=== PATIENT | female | born 1950 | race Caucasian/White ===

== ENCOUNTER → 2016-06-24 | Outpatient (CLI) | payer OTHER ==
[~2016-06-24] MED LIST: AMPH10TA2 PO; ASPI1TAB83 PO; ATOR-22 PO; Baclofen Pump; CYAN500T PO; CYCL0.052 OP; DIME1CAP2 PO; FOLI400T41 PO; GABA800T2 PO; LISI-787 PO; OMEP20TA PO; POLY335040 PO; PRAM1TAB6 PO; TRAZ1TAB8 PO; VIT D
[2016-06-24 17:52] LABS: BASO % 0.4 %; BASO ABS # 0.02 K/uL (0-0.2); COMPLETE YES; EOS % 8.9 %; HEMATOCRIT 39.1 % (37-47); IG% 0.2 %; LYMPH % 12.1 %; LYMPH ABS # 0.61 K/uL (1.2-3.4); MEAN CELL VOLUME 87.9 fL (80-100); MEAN CORPUSCULAR HEMOGLOBIN 29.4 pg (25-34); MEAN CORPUSCULAR HGB CONC 33.5 g/dl (32-36); MEAN PLATELET VOLUME 10.7 fL (7.4-10.4); MONO % 9.5 %; NEUT % 68.9 %; PLATELET COUNT 197 K/uL (130-400); RED BLOOD COUNT 4.45 M/uL (4.2-5.4); WHITE BLOOD COUNT 5.05 K/uL (4.8-10.8)
[2016-06-24 18:29] LABS: ALT/SGPT 38 U/L (12-78); AST/SGOT 26 U/L (15-37); BLOOD UREA NITROGEN 25 mg/dl (7-18); BUN/CREATININE RATIO 23.1 (10-20); CALCIUM 9.7 mg/dl (8.5-10.1); CARBON DIOXIDE 32 mmol/L (21-32); CHLORIDE 104 mmol/L (98-107); GLUCOSE 90 mg/dl (70-99); POTASSIUM 4.1 mmol/L (3.5-5.1); SODIUM 143 mmol/L (136-145)
[2016-06-24 18:31] LABS: ALB/GLOB RATIO 1.2 (0.9-2); ALKALINE PHOSPHATASE 85 U/L (45-117)
== END | disposition home or self-care (01) ==
LOC: C.LABMFLN 08:06
PROVIDERS: ATTEND Psychiatry & Neurology Neurology
DX: R53.83 Other fatigue (principal)

== ENCOUNTER → 2016-08-11 | Outpatient (CLI) | payer OTHER ==
[~2016-08-11] MED LIST changes: +FING1CAP PO; -TRAZ1TAB8 PO; +TRAZ1TAB9 PO
[2016-08-11 13:45] LABS: BLOOD UREA NITROGEN 25 mg/dl (7-18)
== END | disposition home or self-care (01) ==
LOC: C.LABMFLN 11:26
PROVIDERS: ATTEND Psychiatry & Neurology Neurology
DX: G35 Multiple sclerosis (principal)

== ENCOUNTER → 2016-08-14 | Outpatient (CLI) | payer OTHER ==
[~2016-08-14] MED LIST changes: +GADAVIST IV PRN
--- NOTE | 2016-08-14 14:40 | DIAGNOSTIC IMAGING REPORT ---
Brain MRI WITH AND WITHOUT CONTRAST HISTORY: Demyelinating disorder MS TECHNIQUE: Multiplanar multisequence MRI of the brain was performed both before and after the intravenous administration of contrast. COMPARISON STUDY: 08/24/2015 FINDINGS: Multiple foci of increased signal within the periventricular deep white matter regions. These are in general similar as compared to the prior study. The periventricular foci are essentially identical. There is a small new focus left superior parietal lobe transaxial image 16 showing a slight increase in signal on the diffusion-weighted images. Also a slight increase in diffusion-weighted signal characteristics of the optic radiations. This is indicative of the several mildly active plaques. There is no evidence, however for abnormal postcontrast enhancement. IMPRESSION: 1. Multiple foci of increased signal within the periventricular deep matter regions 2. Findings are slightly progressive in the regions of the left superior parietal subcortical region as well as the optic radiations. 3. These 2 locations demonstrate a slight increase in signal on diffusion-weighted images suggesting active demyelination. 4. There is no evidence, however for significant postcontrast enhancement. 5. Study is otherwise unchanged from the prior exam. Electronically signed by: Kt Bergman M.D. 08/14/2016 2:38 PM Dictated Date/Time: 08/14/2016 2:29 PM
== END | disposition home or self-care (01) ==
LOC: C.MRIBC 12:56
PROVIDERS: ATTEND Psychiatry & Neurology Neurology
DX: G35 Multiple sclerosis (principal)

== ENCOUNTER → 2017-01-05 | Outpatient (CLI) | payer OTHER ==
[~2017-01-05] MED LIST changes: -FING1CAP PO; -GADAVIST IV PRN; +TRAZ1TAB8 PO; -TRAZ1TAB9 PO
== END | disposition home or self-care (01) ==
LOC: C.CPL 15:38
PROVIDERS: ATTEND Psychiatry & Neurology Neurology
DX: G35 Multiple sclerosis (principal)

== ENCOUNTER → 2017-04-14 | Outpatient (CLI) | payer OTHER ==
[~2017-04-14] MED LIST changes: -DIME1CAP2 PO; +FING1CAP PO; -TRAZ1TAB8 PO; +TRAZ1TAB9 PO
[2017-04-14 18:05] LABS: BASO % 0.3 %; BASO ABS # 0.02 K/uL (0-0.2); COMPLETE YES; EOS % 24.1 %; HEMATOCRIT 39.4 % (37-47); IG% 0.1 %; LYMPH ABS # 0.36 K/uL (1.2-3.4); MEAN CELL VOLUME 91.2 fL (80-100); MEAN CORPUSCULAR HEMOGLOBIN 29.2 pg (25-34); MEAN PLATELET VOLUME 10.6 fL (7.4-10.4); MONO % 7.4 %; NEUT % 63.1 %; PLATELET COUNT 217 K/uL (130-400); RED BLOOD COUNT 4.32 M/uL (4.2-5.4); WHITE BLOOD COUNT 7.13 K/uL (4.8-10.8)
[2017-04-14 18:16] LABS: ALT/SGPT 41 U/L (12-78); AST/SGOT 25 U/L (15-37); BLOOD UREA NITROGEN 31 mg/dl (7-18); BUN/CREATININE RATIO 23.5 (10-20); CALCIUM 9.6 mg/dl (8.5-10.1); CARBON DIOXIDE 29 mmol/L (21-32); CHLORIDE 102 mmol/L (98-107); CREATININE 1.34 mg/dl (0.60-1.20); GLUCOSE 102 mg/dl (70-99); POTASSIUM 3.9 mmol/L (3.5-5.1); SODIUM 136 mmol/L (136-145)
[2017-04-14 18:19] LABS: ALKALINE PHOSPHATASE 145 U/L (45-117)
== END | disposition home or self-care (01) ==
LOC: C.LABMFLN 11:28
PROVIDERS: ATTEND Psychiatry & Neurology Neurology
DX: G35 Multiple sclerosis (principal)

== ENCOUNTER 2017-05-06 06:54 | Observation (INO) | payer OTHER ==
[~2017-05-06] VITALS: Ht 162.6 cm; Wt 91.0 kg
[~2017-05-06 06:54] MED LIST changes: +PRAM1TAB10 PO; -PRAM1TAB6 PO; +TRAZ-162 PO; -TRAZ1TAB9 PO
[2017-05-06] MEDS ORDERED: CHOL2000 PO (07:09)
[2017-05-06] MEDS ORDERED: HYDR-5688 PO (07:09)
[2017-05-06] MEDS ORDERED: POLY335019 PO (07:09)
[2017-05-06] MEDS ORDERED: ASPIRIN 81 MG CHEW PO STA (07:09)
[2017-05-06] MEDS ORDERED: CALCCAP7 PO (07:10)
[2017-05-06] MEDS ORDERED: NITROGLYCERIN 0.4 MG SL PER TAB CHARGE SL PRN ×2 (07:15→09:45)
--- NOTE | 2017-05-06 07:18 | EMERGENCY ROOM VISIT NOTE ---
History Report prepared by Aleksandra: Shelly Beckett Under the Supervision of: Dr. Murtaza Mares M.D. First contact with patient: 07:03 Chief Complaint: CHEST PAIN Stated Complaint: CHEST PAIN Nursing Triage Summary: pt reports having chest pain radiates down left arm. started last night thought was having indigestion. History of Present Illness The patient is a 66 year old female who presents to the Emergency Room with complaints of constant central chest pain beginning last night about nine hours ago. The patient states the pain radiates to her left arm. Presently, the patient rates her pain as a 4/10. When her pain began, the patient thought she was having indigestion. The patient took nitroglycerin this morning that took minimal relief. She denies any shortness of breath or abdominal pain. She denies sweating when her chest pain began but states she felt "funny" with its onset. She notes swelling in her legs which is baseline for her. The patient has a history of a catheterization and had a stent put in in [place] for a 50 % blockage. The patient has hypertension and takes lisinopril daily. She also takes a baby Aspirin daily. Source of History: patient Onset: 9 hours ago Position: chest Symptom Intensity: 4/10 Quality: other (radiates to arm) Timing: constant Associated Symptoms: + chest pain, No diaphoresis, No SOB, No abdominal pain Review of Systems All systems have been listed, reviewed, and are negative other than those previously mentioned. Please see Additional Medical History Sheet. Past Medical & Surgical Medical Problems: (1) CAD (coronary artery disease) (2) Depression (3) GERD (gastroesophageal reflux disease) (4) HTN (hypertension) (5) Lymphedema (6) MS (multiple sclerosis) Surgical Problems: (1) Hx of cholecystectomy (2) S/P insertion of intrathecal pump Family History Post dural puncture headache Social History Smoking Status: Never Smoker Marital Status: Occupation Status: disabled Current/Historical Medications Scheduled Amphetamine-Dextroamphetamine 10MG (Adderall 10MG), 1 TAB PO DAILY Aspirin (Aspirin), 81 MG PO DAILY Atorvastatin (Lipitor), 20 MG PO HS Calcium Carbonate-Vitamin D (Calcium Plus Vitamin D), 1 CAP PO DAILY Cholecalciferol (Vitamin D3), 2 CAP PO QAM Cyanocobalamin (Vitamin B-12), 1,000 MCG PO QAM Fingolimod Hcl ([employer]ya), 0.5 MG PO DAILY Folic Acid (Folvite), 200 MCG PO DAILY Gabapentin (Neurontin), 800 MG PO HS Lisinopril/Hctz (Zestoretic 20MG/12.5MG), 1 TAB PO DAILY Omeprazole (Omeprazole), 20 MG PO DAILY Pramipexole Dihydrochloride (Pramipexole Dihydrochlori), 1 MG PO BID Trazodone Hcl (Desyrel), 100 MG PO HS [Baclofen Pump], UD Scheduled PRN Polyethylene Glycol 3350 (Miralax), 17 GM PO DAILY PRN for Constipation Allergies Coded Allergies: Baclofen (Unverified Adverse Reaction, Severe, BACLOFEN TABS- EXTREME NAUSEA, 05/06/17) Clonazepam (Verified Adverse Reaction, Severe, unstable on feet, 05/06/17) Isosorbide Nitrate (Verified Adverse Reaction, Mild, NAUSEA, 05/06/17) Ropinirole (Verified Adverse Reaction, Mild, NAUSEA, 05/06/17) Aminopyridine (Verified Adverse Reaction, Unknown, other, 05/06/17) unknown Dalfampridine (Verified Adverse Reaction, Unknown, other, 05/06/17) unknown Physical Exam Vital Signs Date Time Temp Pulse Resp B/P (MAP) Pulse Ox O2 Delivery O2 Flow Rate FiO2 05/06/17 08:48 67 16 127/68 98 Room Air 05/06/17 08:15 57 16 133/70 98 Room Air 05/06/17 07:37 69 18 120/55 96 Room Air 05/06/17 07:08 76 05/06/17 07:08 71 16 173/84 98 Room Air 05/06/17 07:06 98 Room Air 05/06/17 06:56 36.5 77 18 169/89 99 Room Air Physical Exam GENERAL: Patient awake, alert, oriented x 3. Patient follows commands. Patient does not appear toxic. Patient is adequately hydrated and well- nourished. SKIN: No erythema, pallor, cyanosis or rash HEENT: Normal head, pupils equal, reactive to light and accommodation. LUNGS: Clear to auscultation. No wheezes, no rales, no rhonchi. HEART: No murmurs. No gallops. No rubs ABDOMEN: No masses, no rebound, no hepatomegaly or splenomegaly. EXTREMITIES: No signs of trauma. 2+ pedal and pretibial edema bilaterally, no pitting. No calf or thigh tenderness. NEUROLOGIC: Cranial nerves II-XII within normal limits. No gross motor sensory function deficits. Medical Decision & Procedures ER Provider Diagnostic Interpretation: Radiology results as stated below per my review and radiologist interpretation: CHEST ONE VIEW PORTABLE FINDINGS: Atherosclerosis of aortic arch. Cardiac silhouette mildly enlarged. Lungs and pleural spaces clear. Osseous structures normal. Cholecystectomy clips noted. IMPRESSION: 1. No acute cardiopulmonary disease. Electronically signed by: Nikolas Alba M.D. Laboratory Results 05/06/17 07:15 05/06/17 07:15 Test 05/06/17 07:15 05/06/17 08:48 Red Blood Count 4.17 M/uL (4.2-5.4) Mean Corpuscular Volume 91.6 fL (80-100) Mean Corpuscular Hemoglobin 29.7 pg (25-34) Mean Corpuscular Hemoglobin Concent 32.5 g/dl (32-36) RDW Standard Deviation 44.0 fL (36.4-46.3) RDW Coefficient of Variation 13.2 % (11.5-14.5) Mean Platelet Volume 10.2 fL (7.4-10.4) Anion Gap 3.0 mmol/L (3-11) Est Creatinine Clear Calc Drug Dose 55.2 ml/min Estimated GFR () 60.4 Estimated GFR (Non- 52.1 BUN/Creatinine Ratio 23.0 (10-20) Calcium Level 9.1 mg/dl (8.5-10.1) Bedside Troponin I < 0.030 ng/ml (0-0.045) Laboratory results as stated above per my review. Medications Administered Medications (Trade) Dose Ordered Sig/Dori Route Start Time Stop Time Status Last Admin Dose Admin Nitroglycerin (Nitrostat Tab) 0.4 mg Q5M PRN SL 05/06/17 07:15 05/06/17 10:26 DC 05/06/17 07:27 0.4 MG Aspirin (Aspirin Chew) 162 mg NOW STAT PO 05/06/17 07:09 05/06/17 07:11 DC 05/06/17 07:27 162 MG ECG Indication: chest pain Rate (beats per minute): 73 Rhythm: normal sinus Findings: no acute ischemic change, no ectopy ED Course 0703: Past medical records reviewed. The patient was evaluated in room A2. A complete history and physical examination was performed. 0709: Ordered Aspirin 162 mg PO. 0715: Ordered Nitroglycerin 0.4 mg SL. 0848: The patient is still having pain. I discussed options and advised further evaluation in hospital over night given her history. The patient is agreeable to treatment plan. 0854: Discussed the patient's case with Amada KEYS. The patient will be evaluated for further management. Medical Decision Differential diagnosis: Etiologies such as cardiac ischemia, aortic dissection, pulmonary embolism, pneumonia, pneumothorax, musculoskeletal, infections, pericarditis, myocarditis , esophageal rupture, gastrointestinal, as well as others were entertained. Patient is here with chest pain concerning for cardiac disease. Multiple labs, EKG and imaging were obtained. Please see above. The patient does not have elevation of her troponin. The patient is diabetic and has a history of MS. She is not a candidate for stress testing at this time. Because of this her significant history sheet will require further evaluation in the hospital with repeat cardiac markers and EKG. I discussed care with the hospitalist. I also discussed care with the patient and her . Medication Reconcilliation Current Medication List: was personally reviewed by me Blood Pressure Screening Patient's blood pressure: Normal blood pressure Consults Time Called: 08 Consulting Physician: Amada KEYS Returned Call: [phone] Discussed the patient's case with Amada KEYS. The patient will be evaluated for further management. Impression Primary Impression: Precordial chest pain Scribe Attestation The scribe's documentation has been prepared under my direction and personally reviewed by me in its entirety. I confirm that the note above accurately reflects all work, treatment, procedures, and medical decision making performed by me. Departure Information Dispostion Being Evaluated By Hospitalist Referrals Tory Bowens D.O. (PCP) Patient Instructions My [facility]
--- NOTE | 2017-05-06 07:25 | DIAGNOSTIC IMAGING REPORT ---
CHEST ONE VIEW PORTABLE CLINICAL HISTORY: 66 years-old Female presenting with chest pain. TECHNIQUE: Portable upright AP view of the chest was obtained. COMPARISON: 11/15/2012. FINDINGS: Atherosclerosis of aortic arch. Cardiac silhouette mildly enlarged. Lungs and pleural spaces clear. Osseous structures normal. Cholecystectomy clips noted. IMPRESSION: 1. No acute cardiopulmonary disease. Electronically signed by: Nikolas Alba M.D. 05/06/2017 7:24 AM Dictated Date/Time: 05/06/2017 7:22 AM
[2017-05-06 07:27] LABS: HEMATOCRIT 38.2 % (37-47); HEMOGLOBIN 12.4 g/dL (12.0-16.0); MEAN CELL VOLUME 91.6 fL (80-100); MEAN CORPUSCULAR HEMOGLOBIN 29.7 pg (25-34); MEAN CORPUSCULAR HGB CONC 32.5 g/dl (32-36); MEAN PLATELET VOLUME 10.2 fL (7.4-10.4); PLATELET COUNT 186 K/uL (130-400); RED CELL DISTRIBUTION WIDTH CV 13.2 % (11.5-14.5); WHITE BLOOD COUNT 6.43 K/uL (4.8-10.8)
[2017-05-06 07:44] LABS: CALCIUM 9.1 mg/dl (8.5-10.1); CREATININE 1.11 mg/dl (0.60-1.20); POTASSIUM 3.8 mmol/L (3.5-5.1)
[2017-05-06] MEDS ORDERED: CYAN10005 PO (07:47)
[2017-05-06] MEDS ORDERED: ACETAMINOPHEN 325 MG TAB PO PRN (09:45)
[2017-05-06] MEDS ORDERED: ONDANSETRON INJ 2 MG/ML 2 ML VIAL IV PRN (09:45)
[2017-05-06] MEDS ORDERED: POLYETHYLENE (MIRALAX) 17 GM PACK PO PRN ×2 (10:00)
--- NOTE | 2017-05-06 10:15 | NUR ---
A: PT ARRIVED TO ROOM 287-2 AT THIS TIME. PT ORIENTED TO ROOM AND CALL BOSS SYSTEM. PT IS A&OX4. VSS ON RA. DENIES CHEST PAIN AND SOB AT THIS TIME. PT IS OOB WITH SUPERVISION AND A ROLLING WALKER. NPO EXCEPT MEDS FOR POSSIBLE STRESS TEST. PT IS RESTING IN BED AT THIS TIME. FAMILY AT BEDSIDE. NO COMPLAINTS. Q1H ROUNDING. CALL BOSS WITHIN REACH. WILL CONTINUE TO MONITOR.
[2017-05-06] MEDS ORDERED: IV FLUIDS COMPLETED PRN (10:30)
[2017-05-06] MEDS ORDERED: AMPH10TA2 PO (11:14)
[2017-05-06 11:29] LABS: INR 0.9 (0.9-1.1); PTT PATIENT 24.7 SECONDS (21.0-31.0)
[2017-05-06] MEDS ORDERED: OPTIRAY 320 IV PRN (11:30)
[2017-05-06 11:46] VITALS: BP 132/78; PULSE 58; TEMP 36.5; O2SAT 97
[2017-05-06] MEDS ORDERED: ENOXAPARIN 40 MG/0.4 ML SYR SC SCH (12:00)
--- NOTE | 2017-05-06 12:00 | NUR ---
A: ASSESSMENT UNCHANGED. Q1H ROUNDING. CALL BOSS WITHIN REACH. WILL CONTINUE TO MONITOR.
[2017-05-06 12:01] VITALS: BP 152/87; PULSE 69; TEMP 36.5; O2SAT 95; Ht 162.6 cm; Wt 91.0 kg
--- NOTE | 2017-05-06 13:05 | DIAGNOSTIC IMAGING REPORT ---
CHEST CTA for PULMONARY ARTERIES CT DOSE: 442.51 mGy.cm HISTORY: Atypical chest pain. TECHNIQUE: Multiaxial CT images of the chest were performed following the intravenous administration of contrast to evaluate the pulmonary arteries. Maximal intensity projection images were also obtained. A dose lowering technique was utilized adhering to the principles of ALARA. COMPARISON STUDY: Chest 05/06/2017. FINDINGS: Normal caliber thoracic aorta with no evidence for dissection. The heart is normal in size. No pleural or pericardial effusions. No filling defects within the pulmonary arteries to suggest pulmonary embolus. Cholecystectomy. There is an intrathecal catheter which terminates at the T9 level. No mediastinal or hilar lymphadenopathy. The central airways are patent. No mediastinal or hilar lymphadenopathy. Calcified granuloma within the right upper lobe. A few calcified right hilar lymph nodes. No focal lung consolidations to suggest pneumonia. A few linear densities at the lung bases consistent with subsegmental atelectasis. IMPRESSION: No evidence for pulmonary embolus. Electronically signed by: Romeo Espitia M.D. 05/06/2017 1:04 PM Dictated Date/Time: 05/06/2017 12:38 PM
--- NOTE | 2017-05-06 13:26 | History and Physical ---
History & Physical Date & Time of Service: May 06, 2017 ~ 9:15 Chief Complaint: Chest Pain Primary Care Physician: Tory Bowens D.O. History of Present Illness 66 year old female who presents to the ED with chest pain. Patient reports she was sitting on the couch last night when she developed left sided chest tightness. Pain radiated into her left arm. She initially thought discomfort was due to indigestion. She took some over the counter stomach soothers. She had some improvement in the discomfort however it returned. Patient was able to sleep throughout the night however when she woke up this morning the discomfort was still present. No further radiation of the pain into the left arm however she reports some pain in the left scapula. She had mild associated lightheadedness. No specific causative or alleviating factors. She denies dizziness and syncopal events. No shortness of breath, nausea, or diaphoresis. She has chronic lower extremity edema which is unchanged from baseline. Reports she has been feeling well recently. She has chronic constipation from MS which is unchanged. No abdominal pain, vomiting, or diarrhea. She denies fever and chills. She has chronic urinary incontinence from MS which is unchanged as well. No other urinary symptoms. In the ED, patient's initial troponin is negative and EKG does not show any acute ST changes. She was given SL nitro without much change in her discomfort. She is hemodynamically stable. Past Medical/Surgical History Medical Problems: (1) CAD (coronary artery disease) Permanent Comment: 2001 - BMS to LAD 2009 - cath, moderate CAD Status: Chronic (2) Depression Status: Chronic (3) GERD (gastroesophageal reflux disease) Status: Chronic (4) HTN (hypertension) Status: Chronic (5) Lymphedema Status: Chronic (6) MS (multiple sclerosis) Status: Chronic Surgical Problems: (1) Hx of cholecystectomy Status: Chronic (2) S/P insertion of intrathecal pump Status: Chronic Family History FH: CAD (coronary artery disease) Hypertension BROTHER (stents, CABG) Social History Smoking Status: Never Smoker Alcohol Use: none Marital Status: Occupational Status: disabled Immunizations History of Influenza Vaccine: Yes Influenza Vaccine Date: Apr 09, 2017 History of Tetanus Vaccine?: Yes Tetanus Immunization Date: Dec 03, 2005 History of Pneumococcal: Yes Pneumococcal Date: Apr 09, 2017 Allergies Coded Allergies: Baclofen (Unverified Adverse Reaction, Severe, BACLOFEN TABS- EXTREME NAUSEA, 05/06/17) Clonazepam (Verified Adverse Reaction, Severe, unstable on feet, 05/06/17) Isosorbide Nitrate (Verified Adverse Reaction, Mild, NAUSEA, 05/06/17) Ropinirole (Verified Adverse Reaction, Mild, NAUSEA, 05/06/17) Aminopyridine (Verified Adverse Reaction, Unknown, other, 05/06/17) unknown Dalfampridine (Verified Adverse Reaction, Unknown, other, 05/06/17) unknown Home Medications Scheduled Amphetamine-Dextroamphetamine 10MG (Adderall 10MG), 1 TAB PO DAILY Aspirin (Aspirin), 81 MG PO DAILY Atorvastatin (Lipitor), 20 MG PO HS Calcium Carbonate-Vitamin D (Calcium Plus Vitamin D), 1 CAP PO DAILY Cholecalciferol (Vitamin D3), 2 CAP PO QAM Cyanocobalamin (Vitamin B-12), 1,000 MCG PO QAM Fingolimod Hcl (Gilenya), 0.5 MG PO DAILY Folic Acid (Folvite), 200 MCG PO DAILY Gabapentin (Neurontin), 800 MG PO HS Lisinopril/Hctz (Zestoretic 20MG/12.5MG), 1 TAB PO DAILY Omeprazole (Omeprazole), 20 MG PO DAILY Pramipexole Dihydrochloride (Pramipexole Dihydrochlori), 1 MG PO BID Trazodone Hcl (Desyrel), 100 MG PO HS [Baclofen Pump], UD Scheduled PRN Polyethylene Glycol 3350 (Miralax), 17 GM PO DAILY PRN for Constipation Review of Systems ROS per HPI, all other systems reviewed and negative Physical Exam Vital Signs Date Time Temp Pulse Resp B/P (MAP) Pulse Ox O2 Delivery O2 Flow Rate FiO2 05/06/17 09:59 68 16 136/72 99 Room Air 05/06/17 09:47 63 05/06/17 08:48 67 16 127/68 98 Room Air 05/06/17 08:15 57 16 133/70 98 Room Air 05/06/17 07:37 69 18 120/55 96 Room Air 05/06/17 07:08 76 05/06/17 07:08 71 16 173/84 98 Room Air 05/06/17 07:06 98 Room Air 05/06/17 06:56 36.5 77 18 169/89 99 Room Air General Appearance: WD/WN, no apparent distress Head: normocephalic, atraumatic Eyes: normal inspection, EOMI, sclerae normal ENT: hearing grossly normal, + pertinent finding (mucous membranes moist) Neck: supple, no JVD, trachea midline Respiratory/Chest: chest non-tender, lungs clear, normal breath sounds, no respiratory distress Cardiovascular: regular rate, rhythm, normal peripheral pulses, + pertinent finding (+2 edema BLLE) Abdomen/GI: normal bowel sounds, non tender, soft, no organomegaly Extremities/Musculoskelatal: normal inspection, no calf tenderness Neurologic/Psych: no motor/sensory deficits, alert, normal mood/affect, oriented x 3 Skin: normal color, warm/dry Diagnostics Laboratory Results Results Past 24 Hours Test 05/06/17 07:15 05/06/17 08:48 05/06/17 10:05 05/06/17 10:29 Range/Units White Blood Count 6.43 4.8-10.8 K/uL Red Blood Count 4.17 4.2-5.4 M/uL Hemoglobin 12.4 12.0-16.0 g/dL Hematocrit 38.2 37-47 % Mean Corpuscular Volume 91.6 80-100 fL Mean Corpuscular Hemoglobin 29.7 25-34 pg Mean Corpuscular Hemoglobin Concent 32.5 32-36 g/dl RDW Standard Deviation 44.0 36.4-46.3 fL RDW Coefficient of Variation 13.2 11.5-14.5 % Platelet Count 186 130-400 K/uL Mean Platelet Volume 10.2 7.4-10.4 fL Sodium Level 139 136-145 mmol/L Potassium Level 3.8 3.5-5.1 mmol/L Chloride Level 105 98-107 mmol/L Carbon Dioxide Level 31 21-32 mmol/L Anion Gap 3.0 3-11 mmol/L Blood Urea Nitrogen 26 7-18 mg/dl Creatinine 1.11 0.60-1.20 mg/dl Est Creatinine Clear Calc Drug Dose 55.2 ml/min Estimated GFR () 60.4 Estimated GFR (Non- 52.1 BUN/Creatinine Ratio 23.0 10-20 Random Glucose 117 70-99 mg/dl Calcium Level 9.1 8.5-10.1 mg/dl Bedside Troponin I < 0.030 < 0.030 0-0.045 ng/ml Diagnostic Radiology CXR IMPRESSION: 1. No acute cardiopulmonary disease. Impression Assessment and Plan CHEST PAIN, HX CAD - admit to tele - patient presenting with waxing and waning chest pain that started last evening ; no change with SL nitro in ED - initial troponin negative, EKG without acute ST changes - CTA negative for PE - consider GI etiology since patient had some relief with OTC stomach soothers - followed with Dr. Ernst with [facility] cardiology - now requesting to get established with [facility] - continue ASA and statin; not on beta radha therapy due to bradycardia in the past; noted that Gilenya also can cause bradycardia - case discussed with Dr. Mccall - will get dobutamine stress this afternoon ; if negative, likely can d/c home this evening HTN - BP controlled, continue lisinopril/HCTZ MS - continue Adderall, Gilenya, and Neurontin DVT PROPHYLAXIS - SQ Lovenox DISPO - The patient will be placed as observation status for now until further work up is complete. Attending addendum: Patient was seen and examined independently. Agree with the above H&P; please refer to above for details Patient presented to the ER with complaints of CP that began last night and has been intermittently recurring since then. Per the patient it seemed like indigestion but did not improve. No associated diaphoresis, N/V or radiation of pain. Cardiac: RR, S1 and S2 auscultated Respiratory: CTA B/L GI: soft NT, ND, + BS ATYPICAL CHEST PAIN: -serial CM -stress TTE as per discussion with Cardiology -initial CM and EKG are negative -CT Thorax to rule out PE VTE Prophylaxis VTE Risk Assessment Done? Y/N: Yes Risk Level: Moderate
[2017-05-06] MEDS ORDERED: FINGOLIMOD HCL 0.5 MG CAP PO SCH (13:30)
[2017-05-06] MEDS ORDERED: DOBUTamine HCL 12.5 MG/ML 20 ML VIAL ONE (14:31)
[2017-05-06] MEDS ORDERED: METOPROLOL TARTRATE 1 MG/ML VIAL ONE (14:31)
[2017-05-06] MEDS ORDERED: ATROPINE SULFATE 0.1 MG/ML 5ML SYR ONE (14:31)
[2017-05-06] MEDS ORDERED: PERFLUTREN LIPID MICROSPHERE (DEFINITY) IV ONE (15:06)
--- NOTE | 2017-05-06 15:08 | NUR ---
CPL: DOBUTAMINE STRESS ECHO COMPLETED WITH DR PRESLEY AT BEDSIDE, THR REACHED AND PATIENT TOLERATED WELL, DOBUTAMINE TITRATED STARTING AT 5 MCG/KG/MIN AND MAX REACHED OF 50 MCG/KG/MIN, LOPRESSOR 5 MG IV GIVEN AT 1452 FOR HR OF 136
[2017-05-06 16:00] VITALS: O2SAT 95
--- NOTE | 2017-05-06 16:01 | NUR ---
OBS: Patient returned to floor from stress test. Sinus ludmila on the monitor. Patient is alert and oriented, denies any c/o chest pain at this time. Dr. Cruz in to see patient; diet ordered. Patient for discharge this evening. Will continue to monitor.
--- NOTE | 2017-05-06 16:15 | Discharge Instructions ---
Discharge Instructions Date of Service May 06, 2017. Admission Reason for Admission: Chest Pain Discharge Discharge Diagnosis / Problem: Chest pain Discharge Goals Goal(s): Therapeutic intervention Activity Recommendations Activity Limitations: resume your previous activity . Instructions / Follow-Up Instructions / Follow-Up Please follow up with Primary Care: Asha Yu PA-c on ThursdayMay 13 at 11:25AM (same practice as your previous PCP Dr. Bowens) Current Hospital Diet Patient's current hospital diet: AHA Diet (Heart Healthy) Discharge Diet Recommended Diet: AHA Diet (Heart Healthy) Pending Studies Studies pending at discharge: no Medical Emergencies . Who to Call and When: Medical Emergencies: If at any time you feel your situation is an emergency, please call 911 immediately. . Non-Emergent Contact Non-Emergency issues call your: Primary Care Provider . . "Provider Documentation" section prepared by Sierra Cruz. . VTE Core Measure Inpt VTE Proph given/why not?: Enoxaparin (Lovenox)SQ
--- NOTE | 2017-05-06 16:16 | Discharge Summary ---
Discharge Summary Date of Service May 06, 2017. Discharge Summary Admission Date: May 06, 2017 at 09:40 Discharge Date: May 06, 2017 Discharge Disposition: Home Principal Diagnosis: Chest pain Medication Reconciliation Continued Medications: Amphetamine-Dextroamphetamine 10MG (Adderall 10MG) 1 Tab Tab 1 TAB PO DAILY for 30 Days, #30 TAB Aspirin (Aspirin) 81 Mg Tab 81 MG PO DAILY Atorvastatin (Lipitor) 20 Mg Tab 20 MG PO HS, TAB Calcium Carbonate-Vitamin D (Calcium Plus Vitamin D) 1 Cap Cap 1 CAP PO DAILY Cholecalciferol (Vitamin D3) 2,000 Unit Cap 2 CAP PO QAM, CAP Cyanocobalamin (Vitamin B-12) 1,000 Mcg Tab 1000 MCG PO QAM, TAB Fingolimod Hcl (Gilenya) 0.5 Mg Cap 0.5 MG PO DAILY Folic Acid (Folvite) 400 Mcg Tab 200 MCG PO DAILY, TAB Gabapentin (Neurontin) 800 Mg Tab 800 MG PO HS, TAB Lisinopril/Hctz (Zestoretic 20MG/12.5MG) Tab 1 TAB PO DAILY, TAB Omeprazole (Omeprazole) 20 Mg Tab 20 MG PO DAILY Polyethylene Glycol 3350 (Miralax) 1 Pow Pow 17 GM PO DAILY PRN for Constipation Pramipexole Dihydrochloride (Pramipexole Dihydrochlori) 1 Mg Tab 1 MG PO BID Trazodone Hcl (Desyrel) 100 Mg Tab 100 MG PO HS, TAB [Baclofen Pump] () UD Admission Information HPI (per Admitting provider): 66 year old female who presents to the ED with chest pain. Patient reports she was sitting on the couch last night when she developed left sided chest tightness. Pain radiated into her left arm. She initially thought discomfort was due to indigestion. She took some over the counter stomach soothers. She had some improvement in the discomfort however it returned. Patient was able to sleep throughout the night however when she woke up this morning the discomfort was still present. No further radiation of the pain into the left arm however she reports some pain in the left scapula. She had mild associated lightheadedness. No specific causative or alleviating factors. She denies dizziness and syncopal events. No shortness of breath, nausea, or diaphoresis. She has chronic lower extremity edema which is unchanged from baseline. Reports she has been feeling well recently. She has chronic constipation from MS which is unchanged. No abdominal pain, vomiting, or diarrhea. She denies fever and chills. She has chronic urinary incontinence from MS which is unchanged as well. No other urinary symptoms. In the ED, patient's initial troponin is negative and EKG does not show any acute ST changes. She was given SL nitro without much change in her discomfort. She is hemodynamically stable. Physical Exam (per Admitting): General Appearance: WD/WN, no apparent distress Head: normocephalic, atraumatic Eyes: normal inspection, EOMI, sclerae normal ENT: hearing grossly normal, + pertinent finding (mucous membranes moist) Neck: supple, no JVD, trachea midline Respiratory/Chest: chest non-tender, lungs clear, normal breath sounds, no respiratory distress Cardiovascular: regular rate, rhythm, normal peripheral pulses, + pertinent finding (+2 edema BLLE) Abdomen/GI: normal bowel sounds, non tender, soft, no organomegaly Extremities/Musculoskelatal: normal inspection, no calf tenderness Neurologic/Psych: no motor/sensory deficits, alert, normal mood/affect, oriented x 3 Skin: normal color, warm/dry Hospital Course Admitted for chest pain rule out ACS; had a stress TTE which was negative: * -- Conclusions -- * Dobutamine Stress Echo: * 1. Negative Dobutamine stress echo for ischemia at 88 % MPHR. * 2. Negative Dobutamine ECG for ischemia at 88 % MPHR. * 3. Appropriate blood pressure response. * 4. No arrhythmia. * 5. No chest pain reported. * 6. Technically difficult study, enhanced with IV Definity. * Echo: * 1. Normal left ventricular size and systolic function. EF 60-65%. No regional wall motion abnormalities. No left ventricular hypertrophy. No significant diastolic dysfunction. * 2. Mild left atrial dilation. * 3. No significant valvular abnormalities. * 4. Normal estimated right ventricular systolic pressure. CHEST PAIN, HX CAD - an events on tele - patient presenting with waxing and waning chest pain that started last evening ; no change with SL nitro in ED - EKG without acute ST changes - CM negative - CTA negative for PE - consider GI etiology since patient had some relief with OTC stomach soothers - followed with Dr. Ernst with [facility] cardiology - now requesting to get established [place] [facility] - continue ASA and statin; not on beta radha therapy due to bradycardia in the past; noted that Gilenya also can cause bradycardia - case discussed with Dr. Mccall - will get dobutamine stress this afternoon ; if negative, likely can d/c home this evening HTN - BP controlled, continue lisinopril/HCTZ MS - continue Adderall, Gilenya, and Neurontin Total time spent on discharge = 35 This includes examination of the patient, discharge planning, medication reconciliation, and communication with other providers. Discharge Instructions see patient instructions
[2017-05-06 16:45] VITALS: BP 152/87; PULSE 69; TEMP 36.5; O2SAT 95
--- NOTE | 2017-05-06 16:51 | DOBUTAMINE ECHO ---
*NOTICE TO RECEIVING DEMOCRAT AGENCY This information is strictly Confidential and protected under [place] law. [place] law prohibits you from making any further disclosure of this information unless further disclosure is expressly permitted by the written consent of the person to whom it pertains or is authorized by law. A general authorization for the release of medical or other information is not sufficient for this purpose. Hospital accepts no responsibility if the information is made available to any other person, INCLUDING THE PATIENT. Interpretation Summary * Name: SANJEEV COLBERT Study Date: 05/06/2017 01:14 PM BP: 116/54 mmHg * Patient Location: .[facility]\S\N287\S\2 HR: 71 * : 1950 (M/d/yyyy) Gender: Female Height: 64 in * Age: 66 yrs Ethnicity: [place] Weight: 200 lb * Ordering Physician: Amada Monzon * Referring Physician: Self, Referred * Performed By: Reny Ruffin RDCS * * Reason For Study: Chest pain * BSA: 2.0 m2 * -- Conclusions -- * Dobutamine Stress Echo: * 1. Negative Dobutamine stress echo for ischemia at 88 % MPHR. * 2. Negative Dobutamine ECG for ischemia at 88 % MPHR. * 3. Appropriate blood pressure response. * 4. No arrhythmia. * 5. No chest pain reported. * 6. Technically difficult study, enhanced with IV Definity. * Echo: * 1. Normal left ventricular size and systolic function. EF 60-65%. No regional wall motion abnormalities. No left ventricular hypertrophy. No significant diastolic dysfunction. * 2. Mild left atrial dilation. * 3. No significant valvular abnormalities. * 4. Normal estimated right ventricular systolic pressure. Procedure Details * DOBUTAMINE ECHO, CPT#[id number] * ECHO DOPPLER, CPT #[id number] * ECHO COLOR FLOW, CPT #[id number] * A contrast injection of Definity was performed to improve assessment of LV function. * Contrast was injected into an intravenous site in the left arm. * One vial of Definity ultrasound contrast was diluted in normal saline to a total volume of 10 ml. A total of '5' ml of solution was administered during imaging. * Lot # [id number] of Definity utilized for procedure. * Expiration date JUN 29. * The attending nurse who injected the contrast agent was Christine Durbin RN. Left Ventricle * The left ventricle is normal in size. * There is normal left ventricular wall thickness. * Ejection Fraction = 60-65%. * Left ventricular systolic function is normal. * Resting wall motion: Normal. Stress wall motion: Appropriate increase in Left ventricular systolic function and decrease in cavity size. No stress induced segmental wall motion abnormalities. * The left ventricular ejection fraction increases normally with stress. The left ventricular end-systolic cavity size reduces post-stress (normal response). The left ventricular wall motion with stress is normal. Right Ventricle * Borderline right ventricular enlargement. * The right ventricular systolic function is normal. * The right ventricular systolic function is normal as assessed by tricuspid annular plane systolic excursion (TAPSE) (normal >1.5 cm). Atria * The left atrium is mildly dilated. * Right atrial size is normal. * There is no evidence of atrial septal defect, but resolution does not allow assessment for a patent foramen ovale. Mitral Valve * There is mild mitral annular calcification. * There is no mitral valve stenosis. * There is trace mitral regurgitation. Tricuspid Valve * The tricuspid valve is not well visualized, but is grossly normal. * There is no tricuspid stenosis. * There is trace tricuspid regurgitation. Aortic Valve * The aortic valve is trileaflet. * No hemodynamically significant valvular aortic stenosis. * No aortic regurgitation is present. Pulmonic Valve * The pulmonary valve is inadequately visualized, but the Doppler data is adequate for interpretation. * Trace pulmonic valvular regurgitation. Great Vessels * The aortic root is normal size. * Ascending aorta of normal dimension * Aortic arch of normal dimension. * Normal pulmonary venous flow pattern. IVC normal in size with reduced inspiratory collapse. Pericardium * There is no pericardial effusion. Stress Parameters * NSR at 69 bpm. * Stress ECG: No ST changes. No arrhythmias. * No arrhythmia were noted with stress. * The stress portion of this study was personally supervised by the undersigned interpreting physician. * Rest heart rate was '71' BPM. * Rest blood pressure was '116/54' * Maximum heart rate achieved was 136 bpm. * Maximum heart rate was 88 % of maximum age-predicted heart rate. * Maximum blood pressure was '180/90' * Maximum Dobutamine infusion rate was '50' mcg/kg/min. * Dobutamine infusion was terminated due to achieving target heart rate * A total of 5 mg of IV Metoprolol was administered to reverse Dobutamine-induced tachycardia. MMode 2D Measurements and Calculations IVSd 0.87 cm LVIDd 4.4 cm LVIDs 2.8 cm LVPWd 0.92 cm IVS/LVPW 0.94 FS 36.0 % EDV(Teich) 86.1 ml ESV(Teich) 29.3 ml EF(Teich) 65.9 % EDV(cubed) 83.2 ml ESV(cubed) 21.8 ml EF(cubed) 73.8 % LV mass(C)d 125.4 grams LV mass(C)dI 64.1 grams/m\S\2 SV(Teich) 56.7 ml SI(Teich) 29.0 ml/m\S\2 SV(cubed) 61.4 ml SI(cubed) 31.4 ml/m\S\2 Ao root diam 2.9 cm Ao root area 6.6 cm\S\2 ACS 1.8 cm LA dimension 3.4 cm asc Aorta Diam 2.6 cm LA/Ao 1.2 LVOT diam 2.0 cm LVOT area 3.1 cm\S\2 LVAd ap4 33.4 cm\S\2 LVLd ap4 7.9 cm EDV(MOD-sp4) 114.0 ml EDV(sp4-el) 120.2 ml LVAs ap4 18.2 cm\S\2 LVLs ap4 6.3 cm ESV(MOD-sp4) 41.8 ml ESV(sp4-el) 44.6 ml EF(MOD-sp4) 63.3 % EF(sp4-el) 62.9 % LVAd ap2 24.1 cm\S\2 LVLd ap2 7.1 cm EDV(MOD-sp2) 68.0 ml EDV(sp2-el) 69.9 ml LVAs ap2 13.0 cm\S\2 LVLs ap2 6.2 cm ESV(MOD-sp2) 23.0 ml ESV(sp2-el) 23.2 ml EF(MOD-sp2) 66.2 % EF(sp2-el) 66.9 % LVLd %diff -11.31 % EDV(MOD-bp) 93.0 ml LVLs %diff -1.55 % ESV(MOD-bp) 30.5 ml EF(MOD-bp) 67.2 % SV(MOD-sp4) 72.1 ml SI(MOD-sp4) 36.9 ml/m\S\2 SV(MOD-sp2) 45.0 ml SI(MOD-sp2) 23.0 ml/m\S\2 SV(MOD-bp) 62.5 ml SI(MOD-bp) 32.0 ml/m\S\2 SV(sp4-el) 75.6 ml SI(sp4-el) 38.6 ml/m\S\2 SV(sp2-el) 46.7 ml SI(sp2-el) 23.9 ml/m\S\2 Doppler Measurements and Calculations MV E max zenaida 73.2 cm/sec MV A max zenaida 59.7 cm/sec MV E/A 1.2 MV dec time 0.19 sec Ao V2 max 107.2 cm/sec Ao max PG 4.6 mmHg Ao max PG (full) 0.72 mmHg ROBBY(V,A) 2.9 cm\S\2 ROBBY(V,D) 2.9 cm\S\2 LV V1 max PG 3.9 mmHg LV V1 max 98.5 cm/sec PA V2 max 109.9 cm/sec PA max PG 4.8 mmHg PA acc slope 504.2 cm/sec\S\2 PA acc time 0.18 sec TR max zenaida 251.1 cm/sec RVSP(TR) 33.2 mmHg RAP systole 8.0 mmHg PA pr(Accel) -0.22 mmHg
--- NOTE | 2017-05-06 17:01 | NUR ---
OBS: Patient discharged at this time via wheelchair with . Saline lock removed, catheter intact. Discharge instructions given, all questions answered.
[2017-05-06] MEDS ORDERED: ATORVASTATIN 20 MG TAB PO SCH (21:00)
[2017-05-06] MEDS ORDERED: GABAPENTIN 800 MG TAB PO SCH (21:00)
[2017-05-06] MEDS ORDERED: PRAMIPEXOLE DIHYDROCHLORIDE 0.5 MG TAB PO SCH (21:00)
[2017-05-06] MEDS ORDERED: TRAZODONE HCL 100 MG TAB PO SCH (21:00)
[2017-05-07] MEDS ORDERED: LISINOPRIL/HCTZ 20/12.5MG TAB PO SCH (09:00)
[2017-05-07] MEDS ORDERED: PANTOprazole SOD 40 MG TAB PO SCH (09:00)
[2017-05-07] MEDS ORDERED: CALCIUM 600MG + VIT D 400 IU TAB PO SCH (09:00)
[2017-05-07] MEDS ORDERED: CYANOCOBALAMIN 500 MCG TAB (VIT B-12) PO SCH (09:00)
[2017-05-07] MEDS ORDERED: AMPHETAMINE ASP/SULF/DEXTRAMPH 10 MG TAB PO SCH (09:00)
[2017-05-07] MEDS ORDERED: FoLIC ACID TAB 400 MCG TAB PO SCH (09:00)
[2017-05-07] MEDS ORDERED: CHOLECALCIFEROL 1000 INTER.UNIT TAB PO SCH (09:00)
[2017-05-07] MEDS ORDERED: ASPIRIN 81 MG ECTAB PO SCH (09:00)
== END 2017-05-06 17:34 | disposition home or self-care (01) ==
LOC: C.EDB 06:55 → C.MED 09:40 → ENRESERV 09:55
PROVIDERS: ADMIT Internal Medicine; ATTEND Internal Medicine
DX: R07.9 Chest pain, unspecified (principal); I25.10 Atherosclerotic heart disease of native coronary artery without angina pectoris; K21.9 Gastro-esophageal reflux disease without esophagitis; G35 Multiple sclerosis; I10 Essential (primary) hypertension; Z79.82 Long term (current) use of aspirin; Z79.899 Other long term (current) drug therapy; Z98.890 Other specified postprocedural states; Z90.49 Acquired absence of other specified parts of digestive tract

== ENCOUNTER → 2017-09-21 | Outpatient (CLI) | payer OTHER ==
[~2017-09-21] MED LIST changes: +CALCCAP7 PO; +CHOL2000 PO; +CYAN10005 PO; -CYAN500T PO; -CYCL0.052 OP; +POLY335019 PO; -POLY335040 PO; +TRAZ-122 PO; -TRAZ-162 PO; -VIT D
[2017-09-21 17:50] LABS: BASO % 0.1 %; BASO ABS # 0.01 K/uL (0-0.2); EOS % 16.5 %; EOS ABS # 1.14 K/uL (0-0.5); HEMATOCRIT 39.9 % (37-47); HEMOGLOBIN 12.7 g/dL (12.0-16.0); IG# 0.01 K/uL (0.00-0.02); LYMPH % 5.6 %; LYMPH ABS # 0.39 K/uL (1.2-3.4); MEAN CELL VOLUME 90.5 fL (80-100); MEAN CORPUSCULAR HEMOGLOBIN 28.8 pg (25-34); MEAN CORPUSCULAR HGB CONC 31.8 g/dl (32-36); MEAN PLATELET VOLUME 10.9 fL (7.4-10.4); MONO % 8.8 %; MONO ABS # 0.61 K/uL (0.11-0.59); NEUT % 68.9 %; NEUT ABS # 4.76 K/uL (1.4-6.5); PLATELET COUNT 188 K/uL (130-400); RED CELL DISTRIBUTION WIDTH CV 13.2 % (11.5-14.5); RED CELL DISTRIBUTION WIDTH SD 43.7 fL (36.4-46.3); WHITE BLOOD COUNT 6.92 K/uL (4.8-10.8)
[2017-09-21 18:24] LABS: POTASSIUM 4.1 mmol/L (3.5-5.1); SODIUM 140 mmol/L (136-145)
[2017-09-21 19:58] LABS: ALBUMIN 3.7 gm/dl (3.4-5.0); ALT/SGPT 34 U/L (12-78); AST/SGOT 24 U/L (15-37); BLOOD UREA NITROGEN 30 mg/dl (7-18); CALCIUM 9.4 mg/dl (8.5-10.1); CARBON DIOXIDE 26 mmol/L (21-32); GLUCOSE 111 mg/dl (70-99)
[2017-09-21 20:00] LABS: ALKALINE PHOSPHATASE 133 U/L (45-117); TOTAL PROTEIN 7.5 gm/dl (6.4-8.2)
== END | disposition home or self-care (01) ==
LOC: C.LABMFLN 12:52
PROVIDERS: ATTEND Psychiatry & Neurology Neurology
DX: G35 Multiple sclerosis (principal)

== ENCOUNTER → 2017-09-23 | Outpatient (CLI) | payer OTHER ==
[~2017-09-23] MED LIST changes: +GADAVIST IV PRN
--- NOTE | 2017-09-23 10:37 | DIAGNOSTIC IMAGING REPORT ---
BRAIN COMBO FOR MS CLINICAL HISTORY: 67 years-old Female presenting with G35 Multiple [id number]. TECHNIQUE: Multisequence, multiplanar MR imaging of the brain was performed before and after the administration of intravenous contrast. IV contrast: 9 mL of Gadavist. COMPARISON: 08/14/2016. FINDINGS: Ventricles and sulci normal in size. Prominent T1 hypointense lesion involving the corpus callosum oriented perpendicular to the body of the lateral ventricle (series 4 image 9), unchanged. Numerous white matter T2/FLAIR hyperintense lesions are stable in size, number, and distribution from the prior exam. These do not appear to involve the brainstem or posterior fossa. No restricted diffusion or enhancement. Several lesions are diffusion hyperintense though also hyperintense on ADC consistent with T2 shine through. No mass effect or midline shift. No restricted diffusion to suggest acute ischemia. No hemorrhage. No extra-axial fluid collection. T2 skull base flow voids preserved. No abnormal parenchymal enhancement. Bone marrow signal intensity within the calvarium within normal limits. IMPRESSION: 1. Stable size, number, and distribution of the white matter lesions. No evidence of active demyelination. No acute intracranial pathology. No abnormal enhancement. Electronically signed by: Nikolas Alba M.D. 09/23/2017 10:36 AM Dictated Date/Time: 09/23/2017 10:23 AM
== END | disposition home or self-care (01) ==
LOC: C.MRI 09:17
PROVIDERS: ATTEND Psychiatry & Neurology Neurology
DX: G35 Multiple sclerosis (principal)

== ENCOUNTER 2021-04-03 10:15 | Inpatient (IN) ==
--- NOTE | 2021-04-03 10:21 | Emergency Department Note ---
Impression & Plan Acute hypoxemic respiratory failure due to COVID-19, Pneumonia due to 2019 novel coronavirus ED Provider Note NAME: SANJEEV COLBERT AGE: 70 SEX: F : 1950 ARRIVES VIA: Ambulance INFORMANT: Patient, ED PROVIDER(S): Will Beck MD Chief Complaint: Shortness of breath HPI: Patient does present due to concern for shortness of breath. Patient reportedly was satting in the 70s on room air at the time of her pickup with EMS. The patient has had associated weakness and did test positive for Covid 2 weeks prior. The patient states that she likely contracted it from her daughter who is a schoolteacher. The patient is vaccinated for COVID-19. The patient does have occasionally productive sputum but denies any history of smoking or oxygen use at home. The patient denies any fevers or chills but has had increasingly worsening diffuse weakness. Patient denies any abdominal pain or chest pain. The patient does have prior history of CAD and did have some right- sided neck discomfort but denies that this feels similar to her prior requirement of stent. Patient has had decreased p.o. intake with associated diarrhea. The patient denies any vomiting. The patient's symptoms have gotten progressively worse over this 2-week period. ROS: See HPI for pertinent positives and negatives. A total of 10 systems were reviewed and otherwise negative. Past medical history: See below Surgical history: See below Social history: See below Physical Exam: GENERAL: Fatigued, mildly ill in appearance, NAD, wearing glasses, wearing a mask, non-toxic. EYE EXAM: Normal conjunctiva. PERRL, no anisocoria and EOM's grossly intact w/o pain. NECK: Supple, no nuchal rigidity, no adenopathy, non-tender. No signs of meningismus. LUNGS: Crackles throughout. Normal chest wall mechanics. HEART: NSR, no MRG. ABDOMEN: Abdomen soft, non-tender, normo-active bowel sounds, no masses, no rebound or guarding. BACK: No CVA TTP. SKIN: No rashes and no bruising. UPPER EXTREMITIES: Upper extremities are grossly normal. LOWER EXTREMITIES: Grossly normal, trace symmetric pretibial edema. Negative Homans' sign bilaterally. NEURO EXAM: A&O x3, cranial nerves II-XII grossly intact, normal speech, moves all 4 extremities on command w/o issue. Differential diagnoses: Reactive airway disease, pneumonia, pneumothorax, COPD, CHF, infections, cardiac ischemia, pulmonary embolism, musculoskeletal, gastrointestinal, as well as other pathologies. Course: Patient was seen and evaluated the bedside. Full history physical exam was performed. EKG interpreted by me Sinus bradycardia, rate of 59, normal intervals, normal axis. No ST changes. No significant change from comparison EKG December 14, 2019. Imaging Studies: See Below Cardiac monitoring: An order was placed for continuous cardiac monitoring. The monitor shows a rate of 62 with sinus rhythm. MDM: Patient was seen due to concern for recent Covid illness and hypoxia. The patient was treated symptomatically with duo nebs IV fluids and dexamethasone. Blood work was obtained. The patient was maintained on 2 to 3 L nasal cannula. sinus patient is vaccinated for COVID-19. The patient has a normal white count H&H and platelet count. Kidney function is at baseline with a creatinine 1.5. The patient does have prerenal azotemia and did have some softer blood pressures. Patient did receive 2 L of IV fluids. Patient is Covid positive. Pro-Rah is not elevated. Chest x-ray does show multifocal pneumonia. I did speak the on-call hospitalist Blade Velasquez PA-C and the patient was admitted by Dr. Dorsey. After speaking with the hospitalist service they would like to rule out PE so CT angiography was ordered. Patient CT angiography shows likely viral pneumonia consistent with COVID-19. There is no evidence of PE. Incidental coronary artery calcification noted. Critical Care: I have personally spent 37 minutes of critical care time in direct management of this patient. This includes bedside care, interpretation of diagnostic studies, and testing, discussion with consultants, patient, and family members, and other require inpatient management activities. This 37 minutes is in excess of all separately billable procedures. Past Med/Surg History Medical History (Updated 04/03/21 @ 17:09 by Will Beck MD) Anxiety and depression CAD (coronary artery disease) s/p stent x 1 ~2001 to LAD- follows with cardio routinely ([facility]) per patient- no current issues GERD (gastroesophageal reflux disease) Well controlled and stable HTN (hypertension) Hyperlipidemia Lymphedema BLE- wears pressure stockings MS (multiple sclerosis) Presence of intrathecal pump Restless leg syndrome Spasticity Rarely takes oral Baclofen Urinary, incontinence, stress female Surgical History History of colonoscopy History of dilatation and curettage History of heart artery stent 18 YEARS AGO 1 STENT PLACED ([facility]) History of tooth extraction Hx of cholecystectomy S/P breast lumpectomy LEFT (BENIGN) S/P insertion of intrathecal pump Family History Other No significant family history Social History Smoking Status: Never smoker Second Hand Exposure: No; Hx Alcohol Use: Yes Alcohol type: hard liquor Hx Substance Use: No Preferred Language: Sinhala Visual Impairment: No Limitations Hearing Ability: Normal Chief Lock Operator Required: No Beliefs That Will Affect Care: None marital status: Current Living Situation: Spouse current occupational status: retired Feels Safe at Home: Yes Assistive Devices: Glasses and Walker Allergies Allergies Allergy/AdvReac Type Severity Reaction Status Date / Time baclofen AdvReac Severe BACLOFEN Verified 04/03/21 13:02 TABS- EXTREME NAUSEA clonazepam AdvReac Severe unstable Verified 04/03/21 13:02 on feet isosorbide AdvReac Mild NAUSEA Verified 04/03/21 13:02 ropinirole AdvReac Mild NAUSEA Verified 04/03/21 13:02 dalfampridine AdvReac Unknown Aminopyridine Verified 04/03/21 13:02 - CAN'T REMEMBER REACTION Home Meds Home Medications Medication Instructions Recorded Confirmed BACLOFEN PUMP 1 ea INTRATRACHEAL UD 02/16/18 04/03/21 aspirin 81 mg tablet,delayed 81 mg PO QAM 02/16/18 04/03/21 release (Adult Aspirin Regimen) atorvastatin 20 mg tablet (Lipitor) 20 mg PO HS 02/16/18 04/03/21 folic acid 400 mcg tablet 0.4 mg PO QAM 02/16/18 04/03/21 omeprazole 20 mg tablet,delayed 20 mg PO QAM 02/16/18 04/03/21 release polyethylene glycol 3350 17 See Rx Instructions PO DAILY 05/02/19 04/03/21 gram/dose oral powder (Miralax) cholecalciferol (vitamin D3) 50 2,000 unit PO QPM 08/25/20 04/03/21 mcg (2,000 unit) tablet (Vitamin D3) cholecalciferol (vitamin D3) 50 4,000 unit PO QAM 08/25/20 04/03/21 mcg (2,000 unit) tablet (Vitamin D3) multivitamin 1 tab PO QAM 08/25/20 04/03/21 Previous Rx's Medication Instructions Recorded baclofen 10 mg tablet 10 mg PO BID PRN #20 tab 05/25/20 oxycodone 5 mg tablet (Roxicodone) 5 mg PO Q8H PRN #9 tab 08/25/20 lisinopril 20 1 tab PO QAM #90 tab 01/02/21 mg-hydrochlorothiazide 25 mg tablet oxybutynin chloride 5 mg tablet 5 mg PO QAM #90 tab 01/22/21 gabapentin 800 mg tablet 800 mg PO HS 90 Days #90 tab 01/23/21 pramipexole 1 mg tablet 1 mg PO BID 90 Days #180 tab 02/18/21 trazodone 100 mg tablet 100 mg PO HS #90 tab 02/18/21 ocrelizumab 30 mg/mL intravenous 600 mg IV Q6MO 180 Days #20 ml 03/06/21 solution (Ocrevus) dextroamphetamine-amphetamine ER 10 mg PO DAILY #30 cap 03/08/21 10 mg 24hr capsule,extend release (Adderall XR) Results & Data (ED) Vital Signs Vital Signs - 24 hr 04/03/21 10:26 04/03/21 10:42 04/03/21 11:07 Temperature 37.1 C Temperature Source Oral Pulse Rate 57 L Pulse Rate [Apical] Pulse Rhythm Regular Pulse Rhythm [Apical] Pulse Strength [Apical] Respiratory Rate 26 H Respiratory Effort / Characteristics Spontaneous Respiratory Depth Respiratory Pattern Regular Blood Pressure 90/56 L Blood Pressure [Right Arm] Blood Pressure Mean 67 Blood Pressure Mean [Right Arm] Blood Pressure Position [Right Arm] Pulse Oximetry 93 95 97 Oxygen Delivery Method Room Air Nasal Cannula Nasal Cannula Oxygen Flow Rate 3 3 Sepsis Recent Fever Within 48 Hours No Sepsis New/Unexplained Change in Mental Status No Sepsis Action Taken by Nursing No Action Required 04/03/21 11:09 04/03/21 11:45 04/03/21 12:48 Temperature Temperature Source Pulse Rate Pulse Rate [Apical] 67 61 Pulse Rhythm Pulse Rhythm [Apical] Regular Regular Pulse Strength [Apical] Normal Respiratory Rate 18 20 20 Respiratory Effort / Characteristics Spontaneous Short of Breath Non-Labored Spontaneous Non-Labored Spontaneous Respiratory Depth Normal Normal Respiratory Pattern Blood Pressure Blood Pressure [Right Arm] 90/50 L 91/52 L Blood Pressure Mean Blood Pressure Mean [Right Arm] 63 65 Blood Pressure Position [Right Arm] Sitting Sitting Pulse Oximetry 96 98 93 Oxygen Delivery Method Nasal Cannula Nasal Cannula Room Air Oxygen Flow Rate 3 3 Sepsis Recent Fever Within 48 Hours Sepsis New/Unexplained Change in Mental Status Sepsis Action Taken by Snf Medications Current Medication List: was personally reviewed by me Laboratory Data Attestation: I reviewed the patient's lab results. Result diagrams: 04/03/21 10:56 04/03/21 10:56 Lab Results 04/03/21 04/03/21 04/03/21 Range/Units 10:56 10:56 11:05 WBC 8.37 (4.8-10.8) K/uL RBC 4.62 (4.2-5.4) M/uL Hgb 13.3 (12.0-16.0) g/dL Hct 40.4 (37-47) % MCV 87.4 (80-100) fL MCH 28.8 (25-34) pg MCHC 32.9 (32-36) g/dL RDW Std Deviation 43.0 (36.4-46.3) fL RDW Coeff of Lucia 13.4 (11.5-14.5) % Plt Count 254 (130-400) K/uL MPV 9.3 (7.4-10.4) fL Immature Gran % (Auto) 0.4 % Neut % (Auto) 74.7 % Lymph % (Auto) 10.4 % [place] % (Auto) 6.0 % Eos % (Auto) 8.4 % Baso % (Auto) 0.1 % Neut # (Auto) 6.26 (1.4-6.5) K/uL Lymph # (Auto) 0.87 L (1.2-3.4) K/uL [place] # (Auto) 0.50 (0.11-0.59) K/uL Eos # (Auto) 0.70 H (0-0.5) K/uL Baso # (Auto) 0.01 (0-0.2) K/uL Immature Gran # (Auto) 0.03 H (0.00-0.02) K/uL Sodium 135 L (136-145) mmol/L Potassium 4.1 (3.5-5.1) mmol/L Chloride 102 (98-107) mmol/L Carbon Dioxide 25 (21-32) mmol/L Anion Gap 8.0 (3-11) BUN 36 H (7-18) mg/dl Creatinine 1.50 H (0.6-1.2) mg/dl Est Cr Clr Drug Dosing Not Reportable Est GFR ( Amer) 40.8 ml/min Est GFR (Non-Af Amer) 35.2 ml/min BUN/Creatinine Ratio 24.3 H (10-20) Glucose 106 H (70-99) mg/dl Calcium 9.1 (8.5-10.1) mg/dl Total Bilirubin 0.6 (0.2-1) mg/dl AST 25 (15-37) U/L ALT 26 (12-78) U/L Alkaline Phosphatase 115 (45-117) U/L Troponin I < 0.015 (0-0.045) ng/ml Total Protein 6.9 (6.4-8.2) gm/dl Albumin 2.8 L (3.4-5.0) gm/dl Globulin 4.1 H (2.5-4.0) gm/dl Albumin/Globulin Ratio 0.7 L (0.9-2) SARS-CoV-2 (PCR) POSITIVE A* (Negative) Administered Medications Discontinued Medications Albuterol (Albut/Ipratrop 3mg/0.5mg Neb 3 Ml Vial) 6 ml INH NOW STA Stop: 04/03/21 10:44 Last Admin: 04/03/21 11:08 Dose: 6 ml Documented by: [id number] Dexamethasone Sodium Phosphate (DexamethasonePf 10 Mg/Ml Vial) 6 mg IV NOW ONE Stop: 04/03/21 10:44 Last Admin: 04/03/21 11:09 Dose: 6 mg Documented by: [id number] Sodium Chloride (Nss 1000ml) 1,000 mls @ 999 mls/hr IV .Q1H1M RYAN Stop: 04/03/21 11:45 Last Infusion: 04/03/21 15:09 Dose: 0 mls/hr Documented by: [id number] Admin: 04/03/21 11:09 Dose: 999 mls/hr Documented by: [id number] Sodium Chloride (Nss 1000ml) 1,000 mls @ 999 mls/hr IV .Q1H1M ONE Stop: 04/03/21 13:25 Last Infusion: 04/03/21 15:09 Dose: 0 mls/hr Documented by: [id number] Admin: 04/03/21 12:53 Dose: 999 mls/hr Documented by: [id number] Ioversol (Optiray 320 125ml) 120 ml IV ONCE ONE Stop: 04/03/21 13:34 Last Admin: 04/03/21 13:34 Dose: 120 ml Documented by: [id number] Imaging Data Radiologist's Impression: Chest X-Ray 04/03/21 10:43 XR chest 1V portable HISTORY: 70 years-old Female Dyspnea acute shortness of breath COMPARISON: Chest radiograph and CTA chest 05/06/2017 TECHNIQUE: Portable AP view of the chest FINDINGS: The cardiac silhouette is mildly enlarged. No pneumothorax or large pleural effusion. Interstitial coarsening with ill-defined bilateral airspace opacities. Degenerative changes of the shoulders and spine. The patient is mildly rotated. IMPRESSION: Interstitial coarsening with ill-defined bilateral airspace opa cities suspicious for multifocal pneumonia. ACT 112: Negative or not required by law. The above report was generated using voice recognition software. It may contain grammatical, syntax or spelling errors. Electronically signed by: Peter Tim M.D. 04/03/2021 11:01 AM Chest CTA 04/03/21 12:59 CT angio chest PE protocol CLINICAL HISTORY: Shortness of breath. Positive Covid. Evaluate for pulmonary embolus COMPARISON STUDY: 05/06/2021 and portable chest from 04/03/2021 CT DOSE: 452.07 mGycm TECHNIQUE: CT Angio of the chest was performed.followed by image post processing with coronal, and sagittal MIP reformats. Contrast Volume: Optiray 320, 120 ml FINDINGS: Vasculature: There is homogeneous perfusion of the pulmonary vasculature bilaterally. No intraluminal filling defects or evidence for pulmonary embolus is seen. Airway: The airway is clear. No endobronchial lesion is identified. Lungs: Patchy groundglass opacities are present throughout both lungs dl racteristic of a viral type pneumonitis and Covid 19 pneumonia. The lungs are otherwise clear of confluent alveolar opacities, air bronchograms or pulmonary nodules. Pleura: There is no evidence for pleural effusion. There is no evidence for pneumothorax. Mediastinum: There is no evidence for pathologic adenopathy. The heart size is within normal limits. There is coronary artery calcification present. The thoracic aorta is within normal limits. There is no evidence for pericardial effusion. Upper abdomen:The adrenal glands are normal bilaterally. Surgical clips are present previous cholecystectomy. Osseous structures: There is no acute osseous pathology. Impression: 1. No CTA evidence for pulmonary embolus. 2. Patchy groundglass opacities are present throughout both lungs characteristic of a viral type pneumonitis and early Covid 19 pneumonia. 3. Coronary artery calcification. ACT 112: Negative or not required by law. Electronically signed by: Demetrius Palomo M.D. 04/03/2021 2:03 PM Discharge Plan Visit Data Chief Complaint: Shortness of Breath/Dyspnea ED Provider: Will Beck Discharge Problem: Acute hypoxemic respiratory failure due to COVID-19, Pneumonia due to 2019 n ovel coronavirus Patient Disposition: Admitted As Inpatient
[2021-04-03] MEDS ORDERED: ALBUT/IPRATROP 3MG/0.5MG NEB 3 ML VIAL INH STA (10:43)
[2021-04-03] MEDS ORDERED: dexAMETHasone**PF** 10 MG/ML VIAL IV ONE (10:43)
[2021-04-03] MEDS ORDERED: SODIUM CHLORIDE 0.9% 1000ML 1,000 ML IV SCH (10:45)
--- NOTE | 2021-04-03 11:02 | XRay Report ---
XR chest 1V portable HISTORY: 70 years-old Female Dyspnea acute shortness of breath COMPARISON: Chest radiograph and CTA chest 05/06/2017 TECHNIQUE: Portable AP view of the chest FINDINGS: The cardiac silhouette is mildly enlarged. No pneumothorax or large pleural effusion. Interstitial co arsening with ill-defined bilateral airspace opacities. Degenerative changes of the shoulders and spi ne. The patient is mildly rotated. IMPRESSION: Interstitial coarsening with ill-defined bilateral airspace opacities suspicious for mult ifocal pneumonia. ACT 112: Negative or not required by law. The above report was generated using voice recognition software. It may contain grammatical, syntax o r spelling errors. Electronically signed by: Peter Tim M.D. 04/03/2021 11:01 AM
[2021-04-03 11:14] LABS: Basophils # (auto) 0.01 K/uL (0-0.2); Basophils % (auto) 0.1 %; Eosinophils % (auto) 8.4 %; Hematocrit (blood only) 40.4 % (37-47); Hemoglobin 13.3 g/dL (12.0-16.0); Immature Granulocytes # (auto) 0.03 K/uL (0.00-0.02); Immature Granulocytes % (auto) 0.4 %; Lymphocytes # (auto) 0.87 K/uL (1.2-3.4); Lymphocytes % (auto) 10.4 %; Mean Corpuscular Hemoglobin 28.8 pg (25-34); Mean Corpuscular Hgb Conc 32.9 g/dL (32-36); Mean Corpuscular Volume 87.4 fL (80-100); Mean Platelet Volume 9.3 fL (7.4-10.4); Neutrophils # (auto) 6.26 K/uL (1.4-6.5); Neutrophils % (auto) 74.7 %; Platelet Count 254 K/uL (130-400); RDW Coefficient of Variation 13.4 % (11.5-14.5); Red Blood Count 4.62 M/uL (4.2-5.4); White Blood Count 8.37 K/uL (4.8-10.8)
[2021-04-03 11:31] LABS: Alanine Aminotransferase 26 U/L (12-78); Albumin Level 2.8 gm/dl (3.4-5.0); Aspartate Aminotransferase 25 U/L (15-37); BUN Creatinine Ratio 24.3 (10-20); Blood Urea Nitrogen 36 mg/dl (7-18); Calcium 9.1 mg/dl (8.5-10.1); Carbon Dioxide 25 mmol/L (21-32); Chloride 102 mmol/L (98-107); Est GFR (African American) 40.8 ml/min; Est GFR (Non-African American) 35.2 ml/min; Glucose 106 mg/dl (70-99); Potassium 4.1 mmol/L (3.5-5.1); Sodium 135 mmol/L (136-145)
[2021-04-03 11:36] LABS: Albumin Globulin Ratio 0.7 (0.9-2); Alkaline Phosphatase 115 U/L (45-117); Bilirubin,Total 0.6 mg/dl (0.2-1); Globulin 4.1 gm/dl (2.5-4.0); Total Protein 6.9 gm/dl (6.4-8.2); Troponin I < 0.015 ng/ml (0-0.045)
[2021-04-03] MEDS ORDERED: SODIUM CHLORIDE 0.9% 1000ML 1,000 ML IV ONE (12:25)
--- NOTE | 2021-04-03 13:17 | History & Physical Report ---
Date of Service April 03, 2021 Assessment & Plan (1) Multifocal pneumonia: (2) Acute respiratory failure with hypoxemia: (3) COVID-19: Plan: - COVID-19 positive on 03/19 - presenting today with worsening shortness of breath - Procalcitonin pending - Lymphocytes 0.87, neutrophils 6.26 - CXR reviewed: showing multifocal pna - O2 sats in low 70s upon arrival to the ED, improved now with being on supplemental O2 via NC - WBC 8.37 - Cont decadron 6 mg IV daily. Not a candidate for remdesivir at this point. - Prone patient as tolerated - CTA neg for PE (4) HTN (hypertension): Plan: -BP is soft at 91/52, hold BP meds, s/p 2L NSS (5) CAD (coronary artery disease): Plan: -Continue ASA 81 mg, atorvastatin 20 mg, holding lisinopril/HCTZ due to blood pressure as above (6) Dyslipidemia: Plan: -Continue statin therapy (7) MS (multiple sclerosis): Plan: -History of such, continue pramipexole, folic acid, multivitamin -PT OT consults DVT ppx: - teds, scds CODE: Full code Dispo: From home, likely to remain in the hospital x 2 days. History of Present Illness Primary Care Provider: Awais Corrales MD This is a 70-year-old female with PMHx of HTN, HLD, CAD, CKD stage IIIb, GERD, restless leg, vitamin D deficiency, multiple sclerosis who presents to the ER with worsening symptoms of known COVID-19 infection including shortness of breath. She initially developed symptoms about 3 weeks ago. She believes she caught it from her daughter who was also found to be positive. She was tested and found to be Covid positive on 03/19/2021 in [place] urgent care, after developing loss of taste and smell, worsening cough and shortness of breath. She was seen by her PCP on 03/27/2021 with complaints of cough, congestion and neck pain that was not improving. At that point time she was placed on prednisone taper for 5 days as well as given azithromycin x5-day course and an inhaler. She completed these medication courses and and felt a little bit better, but then this week she was increasingly weak. She reports falling due to weakness, once in the lift chair, and another time when she went from sitting to standing. Denies LOC or hitting her head, or any other acute injuries sustained. She is eating and drinking fair, she is had diarrhea x 3 days recently, and used Lomotil which helped improve her symptoms. She denies fevers, but is having chills. Denies sweats. She lives at home with her who is now positive for COVID but is doing alright. She is vaccinated and notes she was about due for booster shot. Family Hx: Mother - heart disease Late sister - stroke, kidney failure Sister- Alive and well, hx of CAD Brother - Quadruple bypass surgery with 13 stents Social Hx: non smoker, drinks alcohol occasionally 2-3 times per year, no illicit drug Allergies Allergy/AdvReac Type Severity Reaction Status Date / Time baclofen AdvReac Intermediate BACLOFEN Verified 04/03/21 17:34 TABS- EXTREME NAUSEA clonazepam AdvReac Intermediate unstable Verified 04/03/21 17:34 on feet isosorbide AdvReac Mild NAUSEA Verified 04/03/21 13:02 ropinirole AdvReac Mild NAUSEA Verified 04/03/21 13:02 dalfampridine AdvReac Unknown Aminopyridine Verified 04/03/21 13:02 - CAN'T REMEMBER REACTION Home Medications Medication Instructions Recorded Confirmed Type BACLOFEN PUMP 1 ea INTRATRACHEAL UD 02/16/18 04/03/21 History aspirin 81 mg tablet,delayed 81 mg PO QAM 02/16/18 04/03/21 History release (Adult Aspirin Regimen) atorvastatin 20 mg tablet (Lipitor) 20 mg PO HS 02/16/18 04/03/21 History folic acid 400 mcg tablet 0.4 mg PO QAM 02/16/18 04/03/21 History omeprazole 20 mg tablet,delayed 20 mg PO QAM 02/16/18 04/03/21 History release polyethylene glycol 3350 17 See Rx Instructions PO DAILY 05/02/19 04/03/21 History gram/dose oral powder (Miralax) baclofen 10 mg tablet 10 mg PO BID PRN #20 tab 05/25/20 04/03/21 Rx cholecalciferol (vitamin D3) 50 2,000 unit PO QPM 08/25/20 04/03/21 History mcg (2,000 unit) tablet (Vitamin D3) cholecalciferol (vitamin D3) 50 4,000 unit PO QAM 08/25/20 04/03/21 History mcg (2,000 unit) tablet (Vitamin D3) multivitamin 1 tab PO QAM 08/25/20 04/03/21 History oxycodone 5 mg tablet (Roxicodone) 5 mg PO Q8H PRN #9 tab 08/25/20 04/03/21 Rx lisinopril 20 1 tab PO QAM #90 tab 01/02/21 04/03/21 Rx mg-hydrochlorothiazide 25 mg tablet oxybutynin chloride 5 mg tablet 5 mg PO QAM #90 tab 01/22/21 04/03/21 Rx gabapentin 800 mg tablet 800 mg PO HS 90 Days #90 tab 01/23/21 04/03/21 Rx pramipexole 1 mg tablet 1 mg PO BID 90 Days #180 tab 02/18/21 04/03/21 Rx trazodone 100 mg tablet 100 mg PO HS #90 tab 02/18/21 04/03/21 Rx ocrelizumab 30 mg/mL intravenous 600 mg IV Q6MO 180 Days #20 ml 03/06/21 04/03/21 Rx solution (Ocrevus) dextroamphetamine-amphetamine ER 10 mg PO DAILY #30 cap 03/08/21 04/03/21 Rx 10 mg 24hr capsule,extend release (Adderall XR) Past Med/Surg History Medical History (Updated 04/03/21 @ 17:09 by Will Beck MD) Anxiety and depression CAD (coronary artery disease) s/p stent x 1 ~2001 to LAD- follows with cardio routinely ([facility]) per patient- no current issues GERD (gastroesophageal reflux disease) Well controlled and stable HTN (hypertension) Hyperlipidemia Lymphedema BLE- wears pressure stockings MS (multiple sclerosis) Presence of intrathecal pump Restless leg syndrome Spasticity Rarely takes oral Baclofen Urinary, incontinence, stress female Surgical History History of colonoscopy History of dilatation and curettage History of heart artery stent 18 YEARS AGO 1 STENT PLACED ([facility]) History of tooth extraction Hx of cholecystectomy S/P breast lumpectomy LEFT ([facility]) S/P insertion of intrathecal pump Family History Other No significant family history Social History Smoking Status: Never smoker Second Hand Exposure: No; Hx Alcohol Use: Yes Alcohol type: hard liquor Hx Substance Use: No Preferred Language: Israeli Visual Impairment: No Limitations Hearing Ability: Normal Direct Care Worker Required: No Beliefs That Will Affect Care: None marital status: Current Living Situation: Spouse current occupational status: retired Feels Safe at Home: Yes Assistive Devices: Glasses and Walker Review of Systems Review of Systems: Constitutional: No fever, sweats, + chills Eyes: No diplopia, no worsening or blurred vision ENT: normal hearing, no trouble swallowing Respiratory: As per HPI, +cough, sputum, dyspnea at rest and on exertion Cardiovascular: No chest pain, tightness or palpitations Abdomen: As per HPI. No pain, nausea, vomiting, diarrhea or constipation Musculoskeletal: No joint pain, calf pain, swelling Neurologic: + generalized weakness, + hx of MS, no numbness/tingling, + chronic balance problems Psychiatric: No anxiety or depression Skin: No rash or itch Physical Exam Physical Exam: Please refer to physician attending as I did not see the patient in person due to being COVID-19 positive. Results & Data Results & Data ([facility]) Vital Signs (Past 12 Hours) Vital Signs Temp Pulse Pulse Resp BP BP Pulse Ox 04/03/21 12:48 61 20 91/52 L 93 04/03/21 11:45 67 20 90/50 L 98 04/03/21 11:09 18 96 04/03/21 11:07 97 04/03/21 10:42 95 04/03/21 10:26 37.1 C 57 L 26 H 90/56 L 93 Laboratory Results Laboratory Results - last 24 hr 04/03/21 04/03/21 04/03/21 10:56 10:56 11:05 WBC 8.37 RBC 4.62 Hgb 13.3 Hct 40.4 MCV 87.4 MCH 28.8 MCHC 32.9 RDW Std Deviation 43.0 RDW Coeff of Lucia 13.4 Plt Count 254 MPV 9.3 Immature Gran % (Auto) 0.4 Neut % (Auto) 74.7 Lymph % (Auto) 10.4 [place] % (Auto) 6.0 Eos % (Auto) 8.4 Baso % (Auto) 0.1 Neut # (Auto) 6.26 Lymph # (Auto) 0.87 L [place] # (Auto) 0.50 Eos # (Auto) 0.70 H Baso # (Auto) 0.01 Immature Gran # (Auto) 0.03 H Sodium 135 L Potassium 4.1 Chloride 102 Carbon Dioxide 25 Anion Gap 8.0 BUN 36 H Creatinine 1.50 H Est Cr Clr Drug Dosing Not Reportable Est GFR ( Amer) 40.8 Est GFR (Non-Af Amer) 35.2 BUN/Creatinine Ratio 24.3 H Glucose 106 H Calcium 9.1 Total Bilirubin 0.6 AST 25 ALT 26 Alkaline Phosphatase 115 Troponin I < 0.015 Total Protein 6.9 Albumin 2.8 L Globulin 4.1 H Albumin/Globulin Ratio 0.7 L SARS-CoV-2 (PCR) POSITIVE A* Diagnostic Findings Chest X-Ray 04/03/21 10:43 XR chest 1V portable HISTORY: 70 years-old Female Dyspnea acute shortness of breath COMPARISON: Chest radiograph and CTA chest 05/06/2017 TECHNIQUE: Portable AP view of the chest FINDINGS: The cardiac silhouette is mildly enlarged. No pneumothorax or large pleural effusion. Interstitial coarsening with ill-defined bilateral airspace opacities. Degenerative changes of the shoulders and spine. The patient is mildly rotated. IMPRESSION: Interstitial coarsening with ill-defined bilateral airspace opacities suspicious for multifocal pneumonia. ACT 112: Negative or not required by law. The above report was generated using voice recognition software. It may contain grammatical, syntax or spelling errors. Electronically signed by: Peter Tim M.D. 04/03/2021 11:01 AM ECG Additional Comments: 03-APR-2021 10:29:39 [facility]-EDSTAT ROUTINE RETRIEVAL Sinus bradycardia Cannot rule out Anterior infarct , age undetermined Abnormal ECG When compared with ECG of 14-DEC-2019 11:34, No significant change was found 25mm/s 10mm/mV 150Hz 9.0.9 12SL 241 MAYANK: 13 Unconfirmed Vent. rate 59 BPM ME interval 142 ms QRS duration 92 ms QT/QTc 394/390 ms Code Status & VTE Plan Code Status Full code Supervising Physician Co-Signing Physician Notes 70-year-old female with past medical history of multiple sclerosis, GERD, CKD stage IIIb, HTN, HLD, CAD presented to our ED 04/03 with worsening shortness of breath and weakness. Per patient, she started developing cough and runny nose almost 3 weeks ago. She reports productive cough with yellow sputum. Procalcitonin is negative. WBC WNL. Patient afebrile. Closely monitor for secondary bacterial infection. She was found positive for Covid on 03/19. She is vaccinated against Covid in July 2020 and was about to get her booster shot but she was diagnosed with Covid. She also reports having 3 events of diarrhea in the last several weeks which got resolved with Imodium. She reports headache, weakness. She also reports that her leg gave up 2 times in the last 1 day. No smoking/alcohol/recreational drugs. Full code. No indication for remdesivir. Dexamethasone. Flutter valve. Incentive is spirometry. PT/OT while inpatient. Likely need placement. Supplemental oxygen as needed. Nebulization. Proning. Upon exam GENERAL: Alert and oriented x3. NAD, on RA. Weak. Obese HEENT: No pallor, no icterus. Pupils equal, round and reactive to light. Oral mucosa moist. NECK: No JVD, no neck masses. HEART: S1 and S2 heard. Regular rate and rhythm. No murmur, no gallop. RESPIRATORY SYSTEM: Normal AP diameter. No accessory muscle use. No wheezing, no crackles. Decreased breath sounds w/ fine occasional bibasilar crackles ABDOMEN: Soft, bowel sounds present, nontender, no distention. CENTRAL NERVOUS SYSTEM: Alert and oriented x3. No facial droop. Speech is clear. Obeys simple commands. Moves extremities. EXTREMITIES: No BLE edema, no erythema seen. External urinary catheter with urinary light yellow collection.. I have seen and examined the patient and have discussed the case with the provider above. I agree with the assessment and plan as stated.
[2021-04-03] MEDS ORDERED: OPTIRAY 320 125ml IV ONE (13:33)
--- NOTE | 2021-04-03 14:04 | CT Scan Report ---
CT angio chest PE protocol CLINICAL HISTORY: Shortness of breath. Positive Covid. Evaluate for pulmonary embolus COMPARISON STUDY: 05/06/2021 and portable chest from 04/03/2021 CT DOSE: 452.07 mGycm TECHNIQUE: CT Angio of the chest was performed.followed by image post processing with coronal, and s agittal MIP reformats. Contrast Volume: Optiray 320, 120 ml FINDINGS: Vasculature: There is homogeneous perfusion of the pulmonary vasculature bilaterally. No intraluminal filling defects or evidence for pulmonary embolus is seen. Airway: The airway is clear. No endobronchial lesion is identified. Lungs: Patchy groundglass opacities are present throughout both lungs characteristic of a viral type pneumonitis and Covid 19 pneumonia. The lungs are otherwise clear of confluent alveolar opacities, ai r bronchograms or pulmonary nodules. Pleura: There is no evidence for pleural effusion. There is no evidence for pneumothorax. Mediastinum: There is no evidence for pathologic adenopathy. The heart size is within normal limits. There is coronary artery calcification present. The thoracic aorta is within normal limits. There is no evidence for pericardial effusion. Upper abdomen:The adrenal glands are normal bilaterally. Surgical clips are present previous cholecys tectomy. Osseous structures: There is no acute osseous pathology. Impression: 1. No CTA evidence for pulmonary embolus. 2. Patchy groundglass opacities are present throughout both lungs characteristic of a viral type pneu monitis and early Covid 19 pneumonia. 3. Coronary artery calcification. ACT 112: Negative or not required by law. Electronically signed by: Demetrius Palomo M.D. 04/03/2021 2:03 PM
[2021-04-03] MEDS ORDERED: ONDANSETRON INJ 2 MG/ML 2 ML VIAL IV PRN (17:27)
[2021-04-03] MEDS ORDERED: ACETAMINOPHEN 325 MG TAB PO PRN (17:27)
[2021-04-03] MEDS: ALBUTEROL HFA 8 GM INHALER INH SCH ×2 (19:48→20:12)
[2021-04-04] MEDS: ALBUTEROL HFA 8 GM INHALER INH SCH ×2 (06:06→10:37)
[2021-04-04] MEDS ORDERED: oxyCODONE HCL IR 5 MG TAB (IMMEDIATE RELEASE) PO STA (06:32)
[2021-04-04 06:43] LABS: Hematocrit (blood only) 36.3 % (37-47); Hemoglobin 11.9 g/dL (12.0-16.0); Mean Corpuscular Hemoglobin 28.2 pg (25-34); Mean Corpuscular Hgb Conc 32.8 g/dL (32-36); Mean Platelet Volume 9.6 fL (7.4-10.4); Platelet Count 289 K/uL (130-400); RDW Coefficient of Variation 13.2 % (11.5-14.5); RDW Standard Deviation 42.3 fL (36.4-46.3); Red Blood Count 4.22 M/uL (4.2-5.4); White Blood Count 6.11 K/uL (4.8-10.8)
--- NOTE | 2021-04-04 06:46 | Electrocardiogram Report ---
Test Reason : Blood Pressure : / mmHG Vent. Rate : 059 BPM Atrial Rate : 059 BPM P-R Int : 142 ms QRS Dur : 092 ms QT Int : 394 ms P-R-T Axes : 027 -07 019 degrees QTc Int : 390 ms Sinus bradycardia Cannot rule out Anterior infarct , age undetermined Abnormal ECG When compared with ECG of 14-DEC-2019 11:34, No significant change was found Confirmed by Isaiah Mccall ([id number]) on 04/04/2021 6:46:18 AM Referred By: Confirmed By:Isaiah Mccall
[2021-04-04 07:13] LABS: Albumin Level 2.4 gm/dl (3.4-5.0); BUN Creatinine Ratio 28.9 (10-20); Calcium 8.9 mg/dl (8.5-10.1); Creatinine Clr Calc Pharmacy 43.4 ml/min; Est GFR (African American) 46.7 ml/min; Est GFR (Non-African American) 40.3 ml/min; Potassium 4.6 mmol/L (3.5-5.1)
[2021-04-04 07:16] LABS: Albumin Globulin Ratio 0.6 (0.9-2); Bilirubin,Total 0.5 mg/dl (0.2-1); Globulin 3.8 gm/dl (2.5-4.0); Total Protein 6.2 gm/dl (6.4-8.2)
[2021-04-04] MEDS: dexAMETHasone 6 MG in SYRINGE 0 ML IV SCH (07:46)
[2021-04-04] MEDS ORDERED: ALBUTEROL HFA 8 GM INHALER INH PRN (11:13)
--- NOTE | 2021-04-04 11:52 | Hospitalist Progress Note ---
Date of Service April 04, 2021 Assessment & Plan (1) Multifocal pneumonia: (2) Acute respiratory failure with hypoxemia: (3) COVID-19: Plan: COVID-19 positive on 03/19 presented withwith worsening shortness of breath Procalcitonin 0.15 CXR reviewed: showing multifocal pna CTA neg for PE Was requiring oxygen until this morning. Currently on room air. Continue dexamethasone continue incentive spirometry (4) HTN (hypertension): Plan: BP normal to mildly elevated Resume home lisinopril monitor (5) CAD (coronary artery disease): Plan: Continue ASA 81 mg, atorvastatin 20 mg (6) Dyslipidemia: Plan: Continue statin therapy (7) MS (multiple sclerosis): Plan: Continue pramipexole, folic acid, multivitamin Patient reports recent falls at home. PT/OT evaluation DVT ppx: Lovenox sq CODE: Full code Admission and Anticipated Discharge Date Admission Date: April 03, 2021 Subjective 70-year-old woman with history of hypertension, hyperlipidemia, CAD, CKD 3, GERD, restless leg syndrome, MS who presented with worsening shortness of breath. Patient been diagnosed of COVID-19. Was requiring oxygen until this morning. Patient seen and examined this morning. Reports occasional dry cough and some shortness of breath Reports fatigue and increase in chronic right-sided weakness. Denies any chest pain, palpitations Denies any nausea, vomiting, abdominal pain or diarrhea. Reports appetite is improving. Denies any dysuria, frequency or urgency Physical Exam Constitutional: + well hydrated and + obese; no acute distress Eyes: PERRL, conjunctivae normal, anicteric sclerae ENMT: external ear and nose normal, oropharynx normal Respiratory: Not in respiratory distress, currently on room, diminished breath sounds Cardiovascular: RRR, S1-S2 Gastrointestinal (Abdomen): normal bowel sounds, soft, nontender, no hepatosplenomegaly Neurologic: PERRL, EOMI, accommodation nl, no face palsy, no dysarthria Power is 4 on right upper extremity and 3+ on right lower extremity Psychiatric: A+Ox3, euthymic affect Results & Data Results & Data ([facility]) Vital Signs (Past 12 Hours) Vital Signs Temp Pulse Pulse Resp BP Pulse Ox 04/04/21 10:38 50 L 16 92 04/04/21 08:00 47 L 04/04/21 07:49 36.5 C 48 L 18 148/71 H 94 04/04/21 06:07 59 L 18 92 04/04/21 04:08 36.8 C 65 19 157/67 H 100 04/04/21 00:21 51 L Laboratory Results Abnormal lab results 04/03/21 04/04/21 04/04/21 Range/Units 11:05 05:40 05:40 Hgb 11.9 L (12.0-16.0) g/dL Hct 36.3 L (37-47) % Chloride 108 H (98-107) mmol/L BUN 39 H (7-18) mg/dl Creatinine 1.34 H (0.6-1.2) mg/dl BUN/Creatinine Ratio 28.9 H (10-20) Glucose 145 H (70-99) mg/dl Total Protein 6.2 L (6.4-8.2) gm/dl Albumin 2.4 L (3.4-5.0) gm/dl Albumin/Globulin Ratio 0.6 L (0.9-2) SARS-CoV-2 (PCR) POSITIVE A* (Negative)
[2021-04-04] MEDS: FOLIC ACID 400 MCG TAB PO SCH (12:37)
[2021-04-04] MEDS: OXYBUTYNIN CHLORIDE 5 MG TAB PO SCH (12:37)
[2021-04-04] MEDS: PANTOprazole 40 MG TAB PO SCH (12:37)
[2021-04-04] MEDS: ASPIRIN 81 MG ECTAB PO SCH (12:37)
[2021-04-04] MEDS: CHOLECALCIFEROL 1,000 UNITS 25 MCG TAB PO SCH ×2 (12:37→19:36)
[2021-04-04] MEDS: ENOXAPARIN INJ 40 MG/0.4 ML SYR SQ SCH (12:38)
[2021-04-04] MEDS: ATORVASTATIN 20 MG TAB PO SCH (19:36)
[2021-04-04] MEDS: GABAPENTIN 800 MG TAB PO SCH (19:36)
[2021-04-04] MEDS: traZODone HCL 100 MG TAB PO SCH (19:37)
[2021-04-04] MEDS: PRAMIPEXOLE DIHYDROCHLO 0.5 MG TAB PO SCH (19:37)
[2021-04-05 06:06] LABS: Hematocrit (blood only) 36.1 % (37-47); Hemoglobin 12.1 g/dL (12.0-16.0); Mean Corpuscular Hemoglobin 29.1 pg (25-34); Mean Corpuscular Hgb Conc 33.5 g/dL (32-36); Mean Corpuscular Volume 86.8 fL (80-100); Mean Platelet Volume 9.6 fL (7.4-10.4); Platelet Count 297 K/uL (130-400); RDW Coefficient of Variation 13.2 % (11.5-14.5); RDW Standard Deviation 42.1 fL (36.4-46.3); Red Blood Count 4.16 M/uL (4.2-5.4); White Blood Count 11.69 K/uL (4.8-10.8)
[2021-04-05 06:41] LABS: Albumin Level 2.4 gm/dl (3.4-5.0); BUN Creatinine Ratio 32.7 (10-20); Calcium 9.2 mg/dl (8.5-10.1); Creatinine Clr Calc Pharmacy 48.1 ml/min; Est GFR (African American) 52.9 ml/min; Est GFR (Non-African American) 45.6 ml/min; Potassium 4.5 mmol/L (3.5-5.1)
[2021-04-05 06:44] LABS: Albumin Globulin Ratio 0.6 (0.9-2); Bilirubin,Total 0.4 mg/dl (0.2-1); Globulin 3.7 gm/dl (2.5-4.0); Total Protein 6.1 gm/dl (6.4-8.2)
[2021-04-05] MEDS: ALUMINUM/MAGNESIUM SUSP 30 ML UDC PO PRN (08:14)
[2021-04-05] MEDS: dexAMETHasone 6 MG in SYRINGE 0 ML IV SCH (08:14)
[2021-04-05] MEDS: OXYBUTYNIN CHLORIDE 5 MG TAB PO SCH (08:15)
[2021-04-05] MEDS: ENOXAPARIN INJ 40 MG/0.4 ML SYR SQ SCH (08:15)
[2021-04-05] MEDS: PRAMIPEXOLE DIHYDROCHLO 0.5 MG TAB PO SCH ×2 (08:15→21:35)
[2021-04-05] MEDS: FOLIC ACID 400 MCG TAB PO SCH (08:15)
[2021-04-05] MEDS: PANTOprazole 40 MG TAB PO SCH (08:15)
[2021-04-05] MEDS: ASPIRIN 81 MG ECTAB PO SCH (08:16)
[2021-04-05] MEDS: CHOLECALCIFEROL 1,000 UNITS 25 MCG TAB PO SCH ×2 (08:16→21:34)
[2021-04-05] MEDS ORDERED: lisinopril 20 MG TAB PO SCH (09:00)
--- NOTE | 2021-04-05 11:59 | Hospitalist Progress Note ---
Date of Service April 05, 2021 Assessment & Plan (1) Multifocal pneumonia: (2) Acute respiratory failure with hypoxemia: (3) COVID-19: Plan: COVID-19 positive on 03/19 presented withwith worsening shortness of breath Procalcitonin 0.15 CXR reviewed: showing multifocal pna CTA neg for PE Was initially requiring oxygen Currently on room air. Continue dexamethasone Continue incentive spirometry (4) HTN (hypertension): Plan: BP running low Hold lisinopril for now (5) CAD (coronary artery disease): Plan: Continue ASA 81 mg, atorvastatin 20 mg (6) Dyslipidemia: Plan: Continue statin therapy (7) MS (multiple sclerosis): Plan: Continue pramipexole, folic acid, multivitamin Patient reports recent falls at home. Awaiting PT/OT evaluation DVT ppx: Lovenox sq CODE: Full code Admission and Anticipated Discharge Date Admission Date: April 03, 2021 Subjective 70-year-old woman with history of hypertension, hyperlipidemia, CAD, CKD 3, GERD, restless leg syndrome, MS who presented with worsening shortness of breath. Patient been diagnosed of COVID-19. Patient seen and examined this morning. Reports occasional dry cough and some shortness of breath with exertion Reported better sleep last night Had mild dizziness with exertion this morning Still has increase in chronic right-sided weakness. Denies any chest pain, palpitations Denies any nausea, vomiting, abdominal pain or diarrhea. Denies any dysuria, frequency or urgency Physical Exam Constitutional: + well hydrated and + obese; no acute distress Eyes: PERRL, conjunctivae normal, anicteric sclerae ENMT: external ear and nose normal, oropharynx normal Respiratory: On room air Diminished breath sound lung base Gastrointestinal (Abdomen): normal bowel sounds, soft, nontender, no hepatosplenomegaly Musculoskeletal: No pedal edema Neurologic: PERRL, EOMI, accommodation nl, no face palsy, no dysarthria Power is 4 on right upper extremity and 3+ on right lower extremity Psychiatric: A+Ox3, euthymic affect Results & Data Results & Data ([facility]) Vital Signs (Past 12 Hours) Vital Signs Temp Pulse Pulse Resp BP Pulse Ox 04/05/21 07:57 36.6 C 44 L 18 107/66 94 04/05/21 02:42 36.7 C 39 L 16 104/64 92 04/05/21 01:07 38 L Laboratory Results Abnormal lab results 04/05/21 04/05/21 Range/Units 05:29 05:29 WBC 11.69 H (4.8-10.8) K/uL RBC 4.16 L (4.2-5.4) M/uL Hct 36.1 L (37-47) % Chloride 108 H (98-107) mmol/L BUN 40 H (7-18) mg/dl Creatinine 1.21 H (0.6-1.2) mg/dl BUN/Creatinine Ratio 32.7 H (10-20) Glucose 125 H (70-99) mg/dl Total Protein 6.1 L (6.4-8.2) gm/dl Albumin 2.4 L (3.4-5.0) gm/dl Albumin/Globulin Ratio 0.6 L (0.9-2)
[2021-04-05] MEDS: ATORVASTATIN 20 MG TAB PO SCH (21:34)
[2021-04-05] MEDS: GABAPENTIN 800 MG TAB PO SCH (21:35)
[2021-04-05] MEDS: traZODone HCL 100 MG TAB PO SCH (21:35)
[2021-04-06 06:14] LABS: Hematocrit (blood only) 37.4 % (37-47); Hemoglobin 12.3 g/dL (12.0-16.0); Mean Corpuscular Hemoglobin 28.6 pg (25-34); Mean Corpuscular Hgb Conc 32.9 g/dL (32-36); Mean Platelet Volume 9.3 fL (7.4-10.4); Platelet Count 332 K/uL (130-400); RDW Coefficient of Variation 13.3 % (11.5-14.5); RDW Standard Deviation 42.4 fL (36.4-46.3); White Blood Count 10.47 K/uL (4.8-10.8)
[2021-04-06 06:51] LABS: Albumin Level 2.4 gm/dl (3.4-5.0); BUN Creatinine Ratio 39.3 (10-20); Calcium 8.9 mg/dl (8.5-10.1); Creatinine Clr Calc Pharmacy 54.7 ml/min; Est GFR (African American) 61.3 ml/min; Est GFR (Non-African American) 52.9 ml/min; Potassium 4.4 mmol/L (3.5-5.1)
[2021-04-06 06:54] LABS: Albumin Globulin Ratio 0.7 (0.9-2); Bilirubin,Total 0.5 mg/dl (0.2-1); Globulin 3.7 gm/dl (2.5-4.0); Total Protein 6.1 gm/dl (6.4-8.2)
[2021-04-06] MEDS: FOLIC ACID 400 MCG TAB PO SCH (08:18)
[2021-04-06] MEDS: PRAMIPEXOLE DIHYDROCHLO 0.5 MG TAB PO SCH ×2 (08:18→21:10)
[2021-04-06] MEDS: ASPIRIN 81 MG ECTAB PO SCH (08:19)
[2021-04-06] MEDS: ENOXAPARIN INJ 40 MG/0.4 ML SYR SQ SCH (08:19)
[2021-04-06] MEDS: OXYBUTYNIN CHLORIDE 5 MG TAB PO SCH (08:19)
[2021-04-06] MEDS: PANTOprazole 40 MG TAB PO SCH (08:19)
[2021-04-06] MEDS: CHOLECALCIFEROL 1,000 UNITS 25 MCG TAB PO SCH ×2 (08:20→21:10)
[2021-04-06] MEDS: dexAMETHasone 6 MG in SYRINGE 0 ML IV SCH (08:21)
[2021-04-06] MEDS: ALUMINUM/MAGNESIUM SUSP 30 ML UDC PO PRN (08:36)
--- NOTE | 2021-04-06 12:53 | Hospitalist Progress Note ---
Date of Service April 06, 2021 Assessment & Plan (1) Multifocal pneumonia: (2) Acute respiratory failure with hypoxemia: (3) COVID-19: Plan: COVID-19 positive on 03/19 presented withwith worsening shortness of breath Procalcitonin 0.15 CXR reviewed: showing multifocal pna CTA neg for PE Was initially requiring oxygen Currently on room air. Continue dexamethasone while inpatient Continue incentive spirometry Airborne isolation discontinued as patient is past isolation days (4) HTN (hypertension): Plan: BP stable Continue to hold lisinopril for now Sinus bradycardic especially when sleeping. Patient follows with [facility] Cardiology Discussed with Dr Nelson to review tele (5) CAD (coronary artery disease): Plan: Continue ASA 81 mg, atorvastatin 20 mg (6) Dyslipidemia: Plan: Continue statin therapy (7) MS (multiple sclerosis): Plan: Continue pramipexole, folic acid, multivitamin Patient reports recent falls at home. PT recommmend rehab CM working on this DVT ppx: Lovenox sq CODE: Full code Downgrade from PCU to med tele Admission and Anticipated Discharge Date Admission Date: April 03, 2021 Subjective 70-year-old woman with history of hypertension, hyperlipidemia, CAD, CKD 3, GERD, restless leg syndrome, MS who presented with worsening shortness of breath. Patient been diagnosed of COVID-19 and increased weakness Patient seen and examined this morning. Reports occasional dry cough and some shortness of breath with exertion Denied dizziness Reports some improvement in worsened chronic right-sided weakness. Denies any chest pain, palpitations Denies any nausea, vomiting, abdominal pain or diarrhea. Denies any dysuria, frequency or urgency Physical Exam Constitutional: + well hydrated and + obese; no acute distress Eyes: PERRL, conjunctivae normal, anicteric sclerae ENMT: external ear and nose normal, oropharynx normal Respiratory: normal respiratory effort; no respiratory distress Diminished breath sounds Cardiovascular: Sinus bradicardia S1 S2 Gastrointestinal (Abdomen): normal bowel sounds, soft, nontender, no hepatosplenomegaly Musculoskeletal: Power is 4/5 in RUE and 3+ in RLE Neurologic: PERRL, EOMI, accommodation nl, no face palsy, no dysarthria Psychiatric: A+Ox3, euthymic affect Results & Data Results & Data ([facility]) Vital Signs (Past 12 Hours) Vital Signs Temp Pulse Pulse Resp BP Pulse Ox 04/06/21 12:00 36.7 C 76 20 132/58 L 94 04/06/21 08:07 37.0 C 68 18 129/60 96 04/06/21 08:00 38 L 04/06/21 03:45 36.5 C 40 L 16 106/61 92 Laboratory Results Abnormal lab results 04/06/21 Range/Units 05:33 Chloride 109 H (98-107) mmol/L BUN 42 H (7-18) mg/dl BUN/Creatinine Ratio 39.3 H (10-20) Glucose 116 H (70-99) mg/dl Total Protein 6.1 L (6.4-8.2) gm/dl Albumin 2.4 L (3.4-5.0) gm/dl Albumin/Globulin Ratio 0.7 L (0.9-2)
[2021-04-06] MEDS: GABAPENTIN 800 MG TAB PO SCH (21:10)
[2021-04-06] MEDS: ATORVASTATIN 20 MG TAB PO SCH (21:10)
[2021-04-06] MEDS: traZODone HCL 100 MG TAB PO SCH (21:10)
[2021-04-07] MEDS: ENOXAPARIN INJ 40 MG/0.4 ML SYR SQ SCH (07:47)
[2021-04-07] MEDS: dexAMETHasone 6 MG in SYRINGE 0 ML IV SCH (07:48)
[2021-04-07] MEDS: CHOLECALCIFEROL 1,000 UNITS 25 MCG TAB PO SCH ×2 (07:48→21:43)
[2021-04-07] MEDS: OXYBUTYNIN CHLORIDE 5 MG TAB PO SCH (07:48)
[2021-04-07] MEDS: ASPIRIN 81 MG ECTAB PO SCH (07:48)
[2021-04-07] MEDS: PANTOprazole 40 MG TAB PO SCH (07:48)
[2021-04-07] MEDS: FOLIC ACID 400 MCG TAB PO SCH (07:48)
[2021-04-07] MEDS: PRAMIPEXOLE DIHYDROCHLO 0.5 MG TAB PO SCH ×2 (07:48→21:44)
--- NOTE | 2021-04-07 14:59 | Hospitalist Progress Note ---
Date of Service April 07, 2021 Assessment & Plan (1) Multifocal pneumonia: (2) Acute respiratory failure with hypoxemia: (3) COVID-19: Plan: COVID-19 positive on 03/19 presented withwith worsening shortness of breath Procalcitonin 0.15 CXR reviewed: showing multifocal pna CTA neg for PE Was initially requiring oxygen Currently on room air. Continue dexamethasone while inpatient Continue incentive spirometry Airborne isolation discontinued as patient is past isolation days (4) HTN (hypertension): Plan: BP stable Continue to hold lisinopril for now Sinus bradycardic especially when sleeping. Patient follows with [facility] Cardiology I discussed with Maintenance Repairer Dr Nelson who reviewed telemetry and recommends no further cardiac evaluation at this time (5) CAD (coronary artery disease): Plan: Continue ASA 81 mg, atorvastatin 20 mg (6) Dyslipidemia: Plan: Continue statin therapy (7) MS (multiple sclerosis): Plan: Continue pramipexole, folic acid, multivitamin Patient reports recent falls at home. PT recommend rehab CM working on this DVT ppx: Lovenox sq CODE: Full code D/C tele Awaiting possible placement Admission and Anticipated Discharge Date Admission Date: April 03, 2021 Subjective 70-year-old woman with history of hypertension, hyperlipidemia, CAD, CKD 3, GERD, restless leg syndrome, MS who presented with worsening shortness of breath. Patient been diagnosed of COVID-19 and increased weakness Patient seen and examined today Reports improvement in weakness today Reports occasional dry cough No dyspnea on exertion today Denies any chest pain, palpitations Denies any nausea, vomiting, abdominal pain or diarrhea. Denies any dysuria, frequency or urgency Physical Exam Constitutional: + well hydrated and + obese; no acute distress Eyes: PERRL, conjunctivae normal, anicteric sclerae ENMT: external ear and nose normal, oropharynx normal Respiratory: normal respiratory effort; no respiratory distress Gastrointestinal (Abdomen): normal bowel sounds, soft, nontender, no hepatosplenomegaly Musculoskeletal: No pedal edema Power in RUE/RLE 4/5 (Improved worsening of chronic right sided weakness) Neurologic: PERRL, EOMI, accommodation nl, no face palsy, no dysarthria Psychiatric: A+Ox3, euthymic affect Results & Data Results & Data ([facility]) Vital Signs (Past 12 Hours) Vital Signs Temp Pulse Pulse Resp BP BP Pulse Ox 11/28/21 11:53 36.6 C 62 18 116/73 93 04/07/21 08:21 36.8 C 50 L 18 112/63 95 04/07/21 08:00 74 04/07/21 04:56 36.6 C 42 L 16 123/64 95
[2021-04-07] MEDS: ATORVASTATIN 20 MG TAB PO SCH (21:43)
[2021-04-07] MEDS: traZODone HCL 100 MG TAB PO SCH (21:43)
[2021-04-07] MEDS: GABAPENTIN 800 MG TAB PO SCH (21:44)
[2021-04-08] MEDS: dexAMETHasone 6 MG in SYRINGE 0 ML IV SCH (09:24)
[2021-04-08] MEDS: ENOXAPARIN INJ 40 MG/0.4 ML SYR SQ SCH (09:24)
[2021-04-08] MEDS: OXYBUTYNIN CHLORIDE 5 MG TAB PO SCH (09:25)
[2021-04-08] MEDS: FOLIC ACID 400 MCG TAB PO SCH (09:25)
[2021-04-08] MEDS: CHOLECALCIFEROL 1,000 UNITS 25 MCG TAB PO SCH (09:25)
[2021-04-08] MEDS: ASPIRIN 81 MG ECTAB PO SCH (09:25)
[2021-04-08] MEDS: PRAMIPEXOLE DIHYDROCHLO 0.5 MG TAB PO SCH (09:26)
[2021-04-08] MEDS: PANTOprazole 40 MG TAB PO SCH (09:26)
--- NOTE | 2021-04-08 12:29 | Discharge Summary ---
Date of Service April 08, 2021 Admission HPI Per Admitting Provider This is a 70-year-old female with PMHx of HTN, HLD, CAD, CKD stage IIIb, GERD, restless leg, vitamin D deficiency, multiple sclerosis who presents to the ER with worsening symptoms of known COVID-19 infection including shortness of breath. She initially developed symptoms about 3 weeks ago. She believes she caught it from her daughter who was also found to be positive. She was tested and found to be Covid positive on 03/19/2021 in [place] urgent care, after developing loss of taste and smell, worsening cough and shortness of breath. She was seen by her PCP on 03/27/2021 with complaints of cough, congestion and neck pain that was not improving. At that point time she was placed on prednisone taper for 5 days as well as given azithromycin x5-day course and an inhaler. She completed these medication courses and and felt a little bit better, but then this week she was increasingly weak. She reports falling due to weakness, once in the lift chair, and another time when she went from sitting to standing. Denies LOC or hitting her head, or any other acute injuries sustained. She is eating and drinking fair, she is had diarrhea x 3 days recently, and used Lomotil which helped improve her symptoms. She denies fevers, but is having chills. Denies sweats. She lives at home with her who is now positive for COVID but is doing alright. She is vaccinated and notes she was about due for booster shot. Admission Exam Per Admitting Provider GENERAL: Alert and oriented x3. NAD, on RA. Weak. Obese HEENT: No pallor, no icterus. Pupils equal, round and reactive to light. Oral mucosa moist. NECK: No JVD, no neck masses. HEART: S1 and S2 heard. Regular rate and rhythm. No murmur, no gallop. RESPIRATORY SYSTEM: Normal AP diameter. No accessory muscle use. No wheezing, no crackles. Decreased breath sounds w/ fine occasional bibasilar crackles ABDOMEN: Soft, bowel sounds present, nontender, no distention. CENTRAL NERVOUS SYSTEM: Alert and oriented x3. No facial droop. Speech is clear. Obeys simple commands. Moves extremities. EXTREMITIES: No BLE edema, no erythema seen. External urinary catheter with urinary light yellow collection.. Principal Diagnosis Acute hypoxic respiratory failure due to COVID-19 pneumonia Generalized weakness, history of MS Discharge Exam Constitutional WD/WN, vitals as above + obese Respiratory normal respiratory effort, lungs clear to auscultation Cardiovascular Rate/Rhythm: regular rate and regular rhythm Vessels: normal peripheral pulses Extremities: + edema (+2 edema BLE) Gastrointestinal (Abdomen) Percussion/Palpation: abdomen soft; abdomen nontender Musculoskeletal Upper extremity strength strong and equal bilaterally; RLE strength 3/5, LLE strength 4/5 (close to baseline per patient) Skin no rashes, warm and dry Neurologic no focal motor deficits Psychiatric A+Ox3, euthymic affect Discharge Data Allergies Allergy/AdvReac Type Severity Reaction Status Date / Time baclofen AdvReac Intermediate BACLOFEN Verified 04/03/21 17:34 TABS- EXTREME NAUSEA clonazepam AdvReac Intermediate unstable Verified 04/03/21 17:34 on feet isosorbide AdvReac Mild NAUSEA Verified 04/03/21 13:02 ropinirole AdvReac Mild NAUSEA Verified 04/03/21 13:02 dalfampridine AdvReac Unknown Aminopyridine Verified 04/03/21 13:02 - CAN'T REMEMBER REACTION Consultations None Procedures Performed None Ordered Studies CTA chest impression 04/03/2021: 1. No CTA evidence for pulmonary embolus. 2. Patchy groundglass opacities are present throughout both lungs characteristic of a viral type pneumonitis and early Covid 19 pneumonia. 3. Coronary artery calcification. Hospital Course (1) Multifocal pneumonia: (2) Acute respiratory failure with hypoxemia: (3) COVID-19: (4) HTN (hypertension): (5) CAD (coronary artery disease): (6) MS (multiple sclerosis): 70-year-old female with PMHx of HTN, HLD, CAD, CKD stage IIIb, GERD, restless leg, vitamin D deficiency, multiple sclerosis who presented to the ER with worsening symptoms of known COVID-19 infection including shortness of breath, generalized weakness, increased falls on 04/03. CTA chest negative for pulmonary embolism however did show signs of multifocal pneumonia consistent with COVID-19. Patient was initially hypoxic on room air in the low 70s and required supplemental oxygen however was able to be weaned off quickly. Patient was not a candidate for remdesivir given her duration of illness. She did receive dexamethasone 6 mg IV daily which also seem to help her weakness from underlying MS. Patient will not be discharged on steroids. No further isolation is needed. Patient had some intermittent hypotension, therefore home lisinopril/HCTZ was held. BP was stable on the day of discharge and due to chronic lower extremity edema, HCTZ 25 mg daily was resumed. Patient was also noted to have intermittent sinus bradycardia, especially while sleeping. Dr. Nelson with [facility] cardiology reviewed telemetry and recommended no further cardiac evaluation. Patient is not on any AV frances blocking agents. Patient was evaluated by PT/OT and acute inpatient rehab was recommended. Patient was accepted to [facility]. Patient was seen and examined on the day of discharge and is stable. Chronic medications for CAD and MS should be continued. Total Time Total Time Spent Total Time Spent (In Minutes): 35 Discharge Plan Discharge Items Patient Disposition: Transfer Inpatient Rehab Fac Reason For Visit: Shortness of breath, falls Discharge Diagnosis: COVID-19 pneumonia History of MS, generalized weakness Activity: Resume your previous activity Non-emergency contact: Primary Care Provider Call non-emergency contact if: you have any medication questions, your symptoms worsen, your pain is not controlled and you have a fever Follow-up/Referrals: Awais Corrales MD [Primary Care Provider] - Diet: Heart Healthy Addtl Attending Provider Instructions: Patient admitted on 04/03. Presented with worsening shortness of breath, tested positive for COVID-19 on 03/19. Initially hypoxic however was able to be weaned to room air. Patient completed quarantine - no isolation needed. Received IV dexamethasone - no steroids will be given at discharge. Had intermittent hypotension and home lisinopril/HCTZ was held - will resume HCTZ 25 mg daily only at discharge. Pending Studies at Discharge: No Stand-Alone Forms: My [facility] Skilled Items Patient informed of condition?: Yes DNR: No Discharge Level of Care: Acute rehab Communicable Disease: No Discharge Prognosis: Stable Lines: None Urinary Catheter: No Medications and DC Order Prescriptions: New hydrochlorothiazide 25 mg tablet 25 mg PO DAILY Qty: 1 RF: 0 Continued atorvastatin [Lipitor] 20 mg tablet 20 mg PO HS RF: 0 folic acid 400 mcg tablet 0.4 mg PO QAM RF: 0 aspirin [Adult Aspirin Regimen] 81 mg tablet,delayed release (DR/EC) 81 mg PO QAM RF: 0 omeprazole 20 mg tablet,delayed release (DR/EC) 20 mg PO QAM RF: 0 BACLOFEN PUMP 1 ea Intratracheal UD RF: 0 polyethylene glycol 3350 [Miralax] 17 gram/dose powder See Rx Instructions PO DAILY RF: 0 baclofen 10 mg tablet 10 mg PO BID PRN (Reason: spasm) Qty: 20 RF: 0 oxybutynin chloride 5 mg tablet 5 mg PO QAM Qty: 90 RF: 1 gabapentin 800 mg tablet 800 mg PO HS 90 Days Qty: 90 RF: 3 pramipexole 1 mg tablet 1 mg PO BID 90 Days Qty: 180 RF: 1 trazodone 100 mg tablet 100 mg PO HS Qty: 90 RF: 1 Ocrevus 30 mg/mL solution 600 mg IV Q6MO 180 Days Qty: 20 RF: 1 dextroamphetamine-amphetamine [Adderall XR] 10 mg capsule,extended release 24hr 10 mg PO DAILY Qty: 30 RF: 0 multivitamin Tablet 1 tab PO QAM RF: 0 cholecalciferol (vitamin D3) [Vitamin D3] 50 mcg (2,000 unit) Tablet 2,000 unit PO QPM RF: 0 cholecalciferol (vitamin D3) [Vitamin D3] 50 mcg (2,000 unit) Tablet 4,000 unit PO QAM RF: 0 oxycodone [Roxicodone] 5 mg tablet 5 mg PO Q8H PRN (Reason: pain) Qty: 9 RF: 0 Discontinued lisinopril-hydrochlorothiazide 20-25 mg tablet 1 tab PO QAM Qty: 90 RF: 1 Discharge Orders: Discharge Order (Routine); Ordered 04/08/21 Ordered By: Amada Quinones/Other Patient Handouts: How COVID-19 Spreads, Simple Ways to Avoid COVID-19, 2019-nCo Admission Data Admit Date/Time: 04/03/21 13:23 Attending Provider: Anisha Tyler I. Admit Provider: Yash Lucas Primary Care Provider: Awais Corrales Other Providers: Seun Cazares ; [facility] ; Ander Dorsey Other Interventions: Discharge Summary Assessment (RN) Last Done: 04/08/21 14:50 Supervising Physician Co-Signing Physician Notes Patient seen and examined Agree with findings and management as detailed by Amada SALOMON
== END 2021-04-08 14:15 | DRG 177 ==
LOC: ED 10:15 → SUATTDRO 13:23 → EDINP 13:23 → 2S 21:56 → 3N 04-07 22:26